=== PATIENT | male | born 1940 | race Caucasian/White ===

== ENCOUNTER 2019-07-23 06:04 | Inpatient (IN) ==
[~2019-07-23 06:04] MED LIST: Dextrose 50 % in Water (Vial) 30 ML, Sodium Bicarbonate 20 MEQ, Lidocaine 1% 5 ML, Insu... TH ONE; Dextrose 50 % in Water (Vial) 30 ML, Sodium Bicarbonate 20 MEQ, Potassium Chloride 15 M... TH ONE; Heparin 15,000 UNIT in 0.9 % Sodium Chloride 500 ML IV ONE; Insulin Human Regular 100 UNIT in 0.9 % Sodium Chloride 100 ML IV PRN; Norepinephrine 4 MG in 0.9 % Sodium Chloride 250 ML IVC PRN
[2019-07-23] MEDS ORDERED: Nitroglycerin 25 MG/250 ML INFUS..BTL IVC ONE (06:23)
[2019-07-23] MEDS ORDERED: NiCARdipine 2.5 MG/10 ML Syringe IVPB ONE (06:23)
[2019-07-23] MEDS ORDERED: *HR* Midazolam HCl 5 MG/5 ML VIAL IVP ONE ×2 (06:33→11:06)
[2019-07-23] MEDS ORDERED: *HR* FentaNYL (PF) 1,000 MCG/20 ML VIAL ONE (06:33)
[2019-07-23] MEDS ORDERED: *HR* Rocuronium Bromide 50 MG/5 ML VIAL ONE (06:34)
[2019-07-23] MEDS ORDERED: *HR* PHENYLEPHRINE 1,000 MCG/10 ML SYRINGE IVP ONE ×2 (06:34→09:23)
[2019-07-23] MEDS ORDERED: Famotidine 20 MG/2 ML VIAL ONE (06:34)
[2019-07-23] MEDS ORDERED: Tranexamic Acid 1,000 MG/10 ML VIAL ONE ×2 (06:34→08:51)
[2019-07-23] MEDS ORDERED: Protamine Sulfate 250 MG/25 ML VIAL IVP ONE (06:34)
[2019-07-23] MEDS ORDERED: Calcium Gluconate 1,000 MG/10 ML VIAL ONE (06:34)
[2019-07-23] MEDS ORDERED: *HR* Etomidate 20 MG/10 ML AMPUL IVP ONE (06:34)
[2019-07-23] MEDS ORDERED: Albuterol 2.5 MG/3 ML NEBULIZER IH PRN (06:40)
[2019-07-23] MEDS ORDERED: Chlorhexidine Rinse 15 ML MOUTHWASH MM ONE (06:42)
[2019-07-23] MEDS ORDERED: CeFAZolin Syr 2,000MG/20 ML 2,000 MG/20 ML SYRINGE IVPB ONE (06:47)
[2019-07-23] MEDS ORDERED: Aspirin 81 MG TAB.CHEW PO SCH (09:00)
[2019-07-23 09:04] LABS: ABG Base Excess 5 mEq/L (-2 to 3); ABG Chloride 102 mEq/L (98-107); ABG Glucose 107 mg/dL (60-95); ABG HCO3 33 mEq/L (21-27); ABG Ionized Calcium 1.21 mmol/L (1.15-1.35); ABG Oxygen Saturation 98 % (95-98); ABG PCO2 64 mmHg (35-45); ABG PH 7.32 pH Units (7.32-7.45); ABG PO2 124 mmHg (85-104); ABG TCO2 35 mEq/L (20-26)
[2019-07-23 09:19] LABS: ABG Base Excess 2 mEq/L (-2 to 3); ABG Chloride 103 mEq/L (98-107); ABG Glucose 152 mg/dL (60-95); ABG HCO3 30 mEq/L (21-27); ABG Ionized Calcium 1.15 mmol/L (1.15-1.35); ABG Oxygen Saturation 97 % (95-98); ABG PCO2 65 mmHg (35-45); ABG PH 7.27 pH Units (7.32-7.45); ABG PO2 109 mmHg (85-104); ABG TCO2 32 mEq/L (20-26)
[2019-07-23] MEDS ORDERED: Lidocaine 2% Syringe 100 MG/5 ML IV ONE (10:21)
[2019-07-23] MEDS ORDERED: *HR* Phenylephrine 10 MG/ML VIAL IVC ONE (10:21)
[2019-07-23] MEDS ORDERED: *HR* Heparin 10,000 UNIT/10 ML VIAL IV ONE (10:21)
[2019-07-23] MEDS ORDERED: Tranexamic Acid 1,000 MG/10 ML VIAL IVPB ONE (10:21)
[2019-07-23] MEDS ORDERED: *HR* Magnesium Sulfate 2 GM/50 ML PIGGYBACK IVPB ONE (10:21)
[2019-07-23] MEDS ORDERED: Albumin Human 25% 25 GM/100 ML IV.SOLN IV ONE (10:21)
[2019-07-23] MEDS ORDERED: Mannitol 25% vial 12.5 GM/50 ML VIAL IVP ONE (10:21)
[2019-07-23 10:29] LABS: ABG Base Excess 5 mEq/L (-2 to 3); ABG Chloride 99 mEq/L (98-107); ABG Glucose 182 mg/dL (60-95); ABG HCO3 29 mEq/L (21-27); ABG Ionized Calcium 1.08 mmol/L (1.15-1.35); ABG PCO2 42 mmHg (35-45); ABG PH 7.45 pH Units (7.32-7.45); ABG PO2 > 630 mmHg (85-104); ABG TCO2 30 mEq/L (20-26)
[2019-07-23 10:37] LABS: ABG Base Excess 4 mEq/L (-2 to 3); ABG Chloride 98 mEq/L (98-107); ABG Glucose 149 mg/dL (60-95); ABG HCO3 27 mEq/L (21-27); ABG Ionized Calcium 1.03 mmol/L (1.15-1.35); ABG Oxygen Saturation 100 % (95-98); ABG PCO2 38 mmHg (35-45); ABG PH 7.47 pH Units (7.32-7.45); ABG PO2 391 mmHg (85-104); ABG TCO2 29 mEq/L (20-26)
[2019-07-23] MEDS ORDERED: *HR* FentaNYL (PF) 250 MCG/5 ML VIAL ONE (11:06)
[2019-07-23] MEDS ORDERED: Albumin Human 5% 50.0 GM/1,000 ML VIAL ONE (11:11)
[2019-07-23 11:31] LABS: ABG Base Excess 1 mEq/L (-2 to 3); ABG Chloride 100 mEq/L (98-107); ABG Glucose 98 mg/dL (60-95); ABG HCO3 27 mEq/L (21-27); ABG Ionized Calcium 1.23 mmol/L (1.15-1.35); ABG Oxygen Saturation 97 % (95-98); ABG PCO2 48 mmHg (35-45); ABG PH 7.35 pH Units (7.32-7.45); ABG PO2 93 mmHg (85-104); ABG TCO2 28 mEq/L (20-26)
[2019-07-23] MEDS ORDERED: Acetaminophen 325 MG TABLET PO PRN (11:40)
[2019-07-23] MEDS ORDERED: Insulin Regular, Human 100 UNIT/ML IV PRN (11:40)
[2019-07-23] MEDS ORDERED: Acetaminophen 650 MG RECTAL SUPP RC PRN (11:40)
[2019-07-23] MEDS ORDERED: Amiodarone Premix 150 MG/100 ML BAG IVPB ONE (11:40)
[2019-07-23] MEDS ORDERED: Potassium Chloride 40 MEQ/200 ML BAG IVPB PRN (11:40)
[2019-07-23] MEDS: Nitroglycerin 25 MG/250 ML INFUS..BTL IVC SCH ×2 (11:40→22:06)
[2019-07-23] MEDS ORDERED: *HR* Dextrose 50 % in Water (Syg) 50 ML SYRINGE IVP PRN (11:40)
[2019-07-23] MEDS ORDERED: Ondansetron 4 MG/2 ML VIAL IVP PRN (11:40)
[2019-07-23] MEDS ORDERED: Amiodarone Premix 360 MG/200 ML BAG IVC ONE (11:40)
[2019-07-23] MEDS ORDERED: Calcium Gluconate 1gm/50mL 1 GM/50 ML BAG IVPB PRN (11:40)
[2019-07-23] MEDS ORDERED: 0.9 % Sodium Chloride w KCl 20 MEQ/1,000 ML MLS IVC SCH (11:45)
[2019-07-23 11:59] LABS: ABG Base Excess 2 mEq/L (-2 to 3); ABG HCO3 28 mEq/L (21-27); ABG Oxygen Saturation 100 % (95-98); ABG PCO2 51 mmHg (35-45); ABG PH 7.35 pH Units (7.32-7.45); ABG PO2 371 mmHg (85-104); ABG TCO2 30 mEq/L (20-26); Blood Gas Modality ASSIST CONTROL; Blood Gas VT 700 cc
[2019-07-23] MEDS ORDERED: niCARdipine 20 MG/200 ML MLS IVC ONE (12:07)
[2019-07-23 12:11] LABS: Basophils % 0.1 %; Eosinophils # 0.1 K/mcL (0.0-0.6); Eosinophils % 1.1 %; Hematocrit 27.9 % (37.5-50.1); Immature Granulocytes % 1.1 % (0-4); Lymphocytes # 0.6 K/mcL (0.6-4.6); Lymphocytes % 7.8 %; Mean Corpuscular HGB Conc 33.3 g/dL (31.6-35.5); Mean Corpuscular Hemoglobin 32.3 pg (28.0-33.3); Mean Corpuscular Volume 96.9 fL (83.0-100.0); Mean Platelet Volume 8.5 fL (9.4-12.4); Monocytes # 0.5 K/mcL (0.0-1.3); Monocytes % 6.8 %; Neutrophils # 6.2 K/mcL (1.6-8.9); Platelet Count 121 K/mcL (140-400); Red Blood Count 2.88 M/mcL (4.19-5.50); Red Cell Distribution Width 13.8 % (11.5-14.5); Segmented Neutrophils % 83.1 %; White Blood Count 7.4 K/mcL (4.3-11.1)
[2019-07-23 12:12] LABS: Hemoglobin 9.3 g/dL (12.9-16.9)
[2019-07-23] MEDS: niCARdipine 20 MG/200 ML MLS IVC SCH ×3 (12:15→23:57)
[2019-07-23] MEDS: *HR* FentaNYL (PF) 100 MCG/2 ML VIAL IVP PRN ×2 (12:18→18:47)
[2019-07-23 12:20] LABS: INR 1.4; Prothrombin Time 15.7 Seconds (9.4-12.1)
[2019-07-23 12:22] LABS: BUN/Creatinine Ratio 15 (6-26); Blood Urea Nitrogen 19 mg/dL (8-23); Calcium 8.4 mg/dL (8.6-10.3); Carbon Dioxide 27 mEq/L (23-29); Chloride 103 mEq/L (98-107); Glucose 88 mg/dL (70-105); Magnesium 2.2 mg/dL (1.6-2.6); Osmolality,Calculated 286 (280-300); Potassium 3.5 mEq/L (3.5-5.1); Sodium 137 mEq/L (136-145); eGFR For African Americans > 60 (> 60); eGFR For Non-African Americans 57 (> 60)
[2019-07-23] MEDS: Metoclopramide 10 MG/2 ML VIAL IVP SCH ×3 (12:26→23:57)
[2019-07-23] MEDS: Pantoprazole 40 MG VIAL IVP SCH (13:29)
[2019-07-23 15:05] LABS: ABG Base Excess 2 mEq/L (-2 to 3); ABG HCO3 29 mEq/L (21-27); ABG Oxygen Saturation 98 % (95-98); ABG PCO2 57 mmHg (35-45); ABG PH 7.31 pH Units (7.32-7.45); ABG PO2 112 mmHg (85-104); ABG TCO2 31 mEq/L (20-26); Blood Gas Modality ASSIST CONTROL; Blood Gas VT 700 cc
[2019-07-23] MEDS: Norepinephrine 4 MG in 0.9 % Sodium Chloride 250 ML IVC SCH (19:37)
[2019-07-23] MEDS: Amiodarone Premix 360 MG/200 ML BAG IVC SCH (19:37)
[2019-07-23] MEDS: Chlorhexidine Rinse 15 ML MOUTHWASH MM SCH (19:40)
[2019-07-23] MEDS: *HR* OxyCODONE/APAP 5/325 TABLET PO PRN (22:04)
[2019-07-24] MEDS: niCARdipine 20 MG/200 ML MLS IVC SCH ×6 (01:55→19:57)
[2019-07-24] MEDS: Insulin Human Regular 100 UNIT in 0.9 % Sodium Chloride 100 ML IVC SCH ×2 (01:55→19:42)
[2019-07-24 03:56] LABS: INR 1.1; Prothrombin Time 12.7 Seconds (9.4-12.1)
[2019-07-24 03:59] LABS: Activated Partial Thrombo Time 30.4 Seconds (26.0-36.0)
[2019-07-24] MEDS: *HR* OxyCODONE/APAP 5/325 TABLET PO PRN ×2 (03:59→21:21)
[2019-07-24 04:05] LABS: Basophils % 0.2 %; Hematocrit 32.7 % (37.5-50.1); Hemoglobin 10.7 g/dL (12.9-16.9); Immature Granulocytes % 0.4 % (0-4); Lymphocytes # 0.8 K/mcL (0.6-4.6); Lymphocytes % 9.1 %; Mean Corpuscular HGB Conc 32.7 g/dL (31.6-35.5); Mean Corpuscular Hemoglobin 32.5 pg (28.0-33.3); Mean Corpuscular Volume 99.4 fL (83.0-100.0); Mean Platelet Volume 9.6 fL (9.4-12.4); Monocytes # 0.8 K/mcL (0.0-1.3); Neutrophils # 6.9 K/mcL (1.6-8.9); Platelet Count 172 K/mcL (140-400); Red Blood Count 3.29 M/mcL (4.19-5.50); Red Cell Distribution Width 14.2 % (11.5-14.5); Segmented Neutrophils % 81.3 %; White Blood Count 8.5 K/mcL (4.3-11.1)
[2019-07-24 04:16] LABS: Calcium 8.6 mg/dL (8.6-10.3); Magnesium 2.5 mg/dL (1.6-2.6); Potassium 4.5 mEq/L (3.5-5.1)
[2019-07-24] MEDS ORDERED: D5% in Water 1,000 ML IVC PRN (05:13)
[2019-07-24] MEDS ORDERED: *HR* Dextrose 50 % in Water (Syg) 50 ML SYRINGE IVP PRN (05:13)
[2019-07-24] MEDS ORDERED: Dextrose Gel 15 GM/37.5 ML TUBE PO PRN ×2 (05:13)
[2019-07-24] MEDS: Nitroglycerin 25 MG/250 ML INFUS..BTL IVC SCH ×3 (05:14→19:57)
[2019-07-24] MEDS: Metoclopramide 10 MG/2 ML VIAL IVP SCH ×3 (05:17→19:45)
[2019-07-24] MEDS: *HR* Heparin 5,000 UNIT/ML VIAL SQ SCH ×2 (06:30→19:43)
[2019-07-24] MEDS: Insulin LISPRO 300 UNITS/3 ML VIAL SQ SCH ×4 (06:46→19:57)
[2019-07-24] MEDS: Aspirin Enteric Coated 81 MG Tablet PO SCH (19:40)
[2019-07-24] MEDS: Furosemide 20 MG/2 ML VIAL IVP SCH ×2 (19:41→19:56)
[2019-07-24] MEDS: Chlorhexidine Rinse 15 ML MOUTHWASH MM SCH ×2 (19:41→19:56)
[2019-07-24] MEDS: Pantoprazole 40 MG VIAL IVP SCH (19:41)
[2019-07-24] MEDS: Norepinephrine 4 MG in 0.9 % Sodium Chloride 250 ML IVC SCH (19:42)
[2019-07-24] MEDS: Amiodarone Premix 360 MG/200 ML BAG IVC SCH (19:42)
[2019-07-25] MEDS: Metoclopramide 10 MG/2 ML VIAL IVP SCH ×4 (00:28→16:25)
[2019-07-25] MEDS: niCARdipine 20 MG/200 ML MLS IVC SCH ×6 (00:29→20:29)
[2019-07-25 04:32] LABS: Basophils % 0.2 %; Eosinophils % 0.3 %; Hematocrit 34.4 % (37.5-50.1); Hemoglobin 10.5 g/dL (12.9-16.9); Immature Granulocytes % 0.6 % (0-4); Lymphocytes # 0.9 K/mcL (0.6-4.6); Lymphocytes % 8.9 %; Mean Corpuscular HGB Conc 30.5 g/dL (31.6-35.5); Mean Corpuscular Volume 104.9 fL (83.0-100.0); Mean Platelet Volume 9.7 fL (9.4-12.4); Monocytes # 0.9 K/mcL (0.0-1.3); Monocytes % 9.6 %; Neutrophils # 7.9 K/mcL (1.6-8.9); Platelet Count 165 K/mcL (140-400); Red Blood Count 3.28 M/mcL (4.19-5.50); Red Cell Distribution Width 14.4 % (11.5-14.5); Segmented Neutrophils % 80.4 %; White Blood Count 9.8 K/mcL (4.3-11.1)
[2019-07-25 04:44] LABS: Calcium 8.7 mg/dL (8.6-10.3); Potassium 4.5 mEq/L (3.5-5.1)
[2019-07-25] MEDS: *HR* Heparin 5,000 UNIT/ML VIAL SQ SCH ×2 (05:18→16:26)
[2019-07-25] MEDS: Nitroglycerin 25 MG/250 ML INFUS..BTL IVC SCH ×3 (05:20→20:29)
[2019-07-25] MEDS: Insulin LISPRO 300 UNITS/3 ML VIAL SQ SCH ×4 (07:26→20:29)
[2019-07-25] MEDS: *HR* OxyCODONE/APAP 5/325 TABLET PO PRN (07:34)
[2019-07-25] MEDS: Aspirin Enteric Coated 81 MG Tablet PO SCH (07:35)
[2019-07-25] MEDS: Furosemide 20 MG/2 ML VIAL IVP SCH ×2 (07:39→20:30)
[2019-07-25] MEDS: Pantoprazole 40 MG VIAL IVP SCH (07:39)
[2019-07-25] MEDS: Chlorhexidine Rinse 15 ML MOUTHWASH MM SCH ×2 (07:39→20:28)
[2019-07-25] MEDS: Norepinephrine 4 MG in 0.9 % Sodium Chloride 250 ML IVC SCH (09:51)
[2019-07-25] MEDS: Amiodarone Premix 360 MG/200 ML BAG IVC SCH (09:51)
[2019-07-25] MEDS: Acetylcysteine 10% 2 ML INHSOL IH SCH ×4 (11:42→23:42)
[2019-07-25] MEDS: Ipratropium/Albuterol Neb 3 ML IH SCH ×4 (11:42→23:42)
[2019-07-26] MEDS: Metoclopramide 10 MG/2 ML VIAL IVP SCH ×3 (00:12→11:36)
[2019-07-26] MEDS: Ipratropium/Albuterol Neb 3 ML IH SCH ×5 (04:01→20:15)
[2019-07-26] MEDS: Acetylcysteine 10% 2 ML INHSOL IH SCH ×5 (04:01→20:16)
[2019-07-26 04:51] LABS: Basophils % 0.2 %; Eosinophils % 0.2 %; Hematocrit 31.1 % (37.5-50.1); Hemoglobin 9.8 g/dL (12.9-16.9); Immature Granulocytes % 0.5 % (0-4); Lymphocytes # 0.6 K/mcL (0.6-4.6); Lymphocytes % 10.3 %; Mean Corpuscular HGB Conc 31.5 g/dL (31.6-35.5); Mean Corpuscular Hemoglobin 32.5 pg (28.0-33.3); Mean Platelet Volume 9.5 fL (9.4-12.4); Monocytes # 0.6 K/mcL (0.0-1.3); Monocytes % 9.1 %; Neutrophils # 4.8 K/mcL (1.6-8.9); Platelet Count 166 K/mcL (140-400); Red Blood Count 3.02 M/mcL (4.19-5.50); Red Cell Distribution Width 14.2 % (11.5-14.5); Segmented Neutrophils % 79.7 %
[2019-07-26 05:10] LABS: Calcium 8.5 mg/dL (8.6-10.3); Potassium 4.1 mEq/L (3.5-5.1)
[2019-07-26 05:12] LABS: % Iron Saturation 8 % (20-55); Iron 16 mcg/dL (65-175); Transferrin 144 mg/dL (203-362)
[2019-07-26 05:30] LABS: Ferritin 124 ng/mL (20-250)
[2019-07-26 05:35] LABS: Folate 12.1 ng/mL (3.0-16.0)
[2019-07-26] MEDS: niCARdipine 20 MG/200 ML MLS IVC SCH ×6 (06:09→23:07)
[2019-07-26] MEDS: *HR* Heparin 5,000 UNIT/ML VIAL SQ SCH ×2 (06:11→17:42)
[2019-07-26] MEDS: Pantoprazole 40 MG VIAL IVP SCH (08:48)
[2019-07-26] MEDS: Nitroglycerin 25 MG/250 ML INFUS..BTL IVC SCH ×2 (08:49→16:18)
[2019-07-26] MEDS: Insulin LISPRO 300 UNITS/3 ML VIAL SQ SCH ×4 (08:49→20:56)
[2019-07-26] MEDS: Chlorhexidine Rinse 15 ML MOUTHWASH MM SCH ×2 (08:49→20:56)
[2019-07-26] MEDS: Aspirin Enteric Coated 81 MG Tablet PO SCH (08:49)
[2019-07-26] MEDS: *HR* OxyCODONE/APAP 5/325 TABLET PO PRN ×2 (09:01→17:42)
[2019-07-26] MEDS ORDERED: Cyanocobalamin (B-12) 1,000 MCG/ML VIAL IM ONE (10:30)
[2019-07-26] MEDS ORDERED: 0.9 % Sodium Chloride 1,000 ML IVC SCH (10:45)
[2019-07-26] MEDS: Amiodarone Premix 360 MG/200 ML BAG IVC SCH (11:22)
[2019-07-26] MEDS: Norepinephrine 4 MG in 0.9 % Sodium Chloride 250 ML IVC SCH (11:22)
[2019-07-26] MEDS ORDERED: 0.9 % Sodium Chloride 500 ML IVC SCH (15:45)
[2019-07-26 15:57] LABS: Bilirubin,Urine Small (Negative); Blood,Urine Large (Negative); Clarity,Urine Cloudy (Clear); Color,Urine Yellow (Yellow); Glucose,Urine (UA) Normal (Normal); Ketones,Urine Negative (Negative); Leukocyte Esterase,Urine Trace (Negative); Nitrite,Urine Negative (Negative); Protein,Urine 100 mg/dL (Neg-Trace); Specific Gravity,Urine 1.022 (1.010-1.025); Urobilinogen,Urine Normal (Normal)
[2019-07-26 15:59] LABS: Bacteria,Urine None Seen per hpf (None-Few); RBC,Urine 15-30 per hpf (0-3); Squamous Epithelial Cell,Urine Many per lpf (None-Few)
[2019-07-26 16:07] LABS: Creatinine,Urine 175 mg/dL; Sodium, Urine < 10.0 mEq/L
[2019-07-27] MEDS: Ipratropium/Albuterol Neb 3 ML IH SCH ×7 (00:07→23:50)
[2019-07-27] MEDS: Acetylcysteine 10% 2 ML INHSOL IH SCH ×7 (00:08→23:50)
[2019-07-27] MEDS: niCARdipine 20 MG/200 ML MLS IVC SCH ×4 (03:00→19:01)
[2019-07-27] MEDS: Nitroglycerin 25 MG/250 ML INFUS..BTL IVC SCH ×3 (03:00→19:01)
[2019-07-27 03:45] LABS: Basophils % 0.2 %; Eosinophils % 0.8 %; Hematocrit 28.1 % (37.5-50.1); Hemoglobin 9.4 g/dL (12.9-16.9); Immature Granulocytes % 0.6 % (0-4); Lymphocytes # 0.5 K/mcL (0.6-4.6); Lymphocytes % 9.6 %; Mean Corpuscular HGB Conc 33.5 g/dL (31.6-35.5); Mean Corpuscular Hemoglobin 32.8 pg (28.0-33.3); Mean Corpuscular Volume 97.9 fL (83.0-100.0); Mean Platelet Volume 9.6 fL (9.4-12.4); Monocytes # 0.5 K/mcL (0.0-1.3); Monocytes % 9.8 %; Neutrophils # 3.8 K/mcL (1.6-8.9); Platelet Count 192 K/mcL (140-400); Red Blood Count 2.87 M/mcL (4.19-5.50); Red Cell Distribution Width 14.1 % (11.5-14.5); White Blood Count 4.8 K/mcL (4.3-11.1)
[2019-07-27 04:13] LABS: Calcium 8.4 mg/dL (8.6-10.3); Potassium 3.8 mEq/L (3.5-5.1)
[2019-07-27] MEDS: *HR* Heparin 5,000 UNIT/ML VIAL SQ SCH ×2 (05:59→16:59)
[2019-07-27] MEDS: Aspirin Enteric Coated 81 MG Tablet PO SCH (08:23)
[2019-07-27] MEDS: Chlorhexidine Rinse 15 ML MOUTHWASH MM SCH ×2 (08:23→20:33)
[2019-07-27] MEDS: Pantoprazole 40 MG VIAL IVP SCH (08:23)
[2019-07-27] MEDS: Cyanocobalamin (B-12) 1,000 MCG TABLET PO SCH (08:23)
[2019-07-27] MEDS: Insulin LISPRO 300 UNITS/3 ML VIAL SQ SCH ×4 (08:24→20:36)
[2019-07-27] MEDS: *HR* OxyCODONE/APAP 5/325 TABLET PO PRN ×2 (13:12→19:16)
[2019-07-27] MEDS: Amiodarone Premix 360 MG/200 ML BAG IVC SCH (15:43)
[2019-07-27] MEDS: Norepinephrine 4 MG in 0.9 % Sodium Chloride 250 ML IVC SCH (15:43)
[2019-07-28 03:20] LABS: Basophils % 0.4 %; Eosinophils # 0.2 K/mcL (0.0-0.6); Eosinophils % 2.9 %; Hematocrit 28.6 % (37.5-50.1); Hemoglobin 9.4 g/dL (12.9-16.9); Immature Granulocytes % 0.4 % (0-4); Lymphocytes # 0.8 K/mcL (0.6-4.6); Lymphocytes % 16.3 %; Mean Corpuscular HGB Conc 32.9 g/dL (31.6-35.5); Mean Corpuscular Hemoglobin 32.4 pg (28.0-33.3); Mean Corpuscular Volume 98.6 fL (83.0-100.0); Mean Platelet Volume 9.1 fL (9.4-12.4); Monocytes # 0.6 K/mcL (0.0-1.3); Monocytes % 11.1 %; Neutrophils # 3.5 K/mcL (1.6-8.9); Platelet Count 201 K/mcL (140-400); Red Cell Distribution Width 14.3 % (11.5-14.5); Segmented Neutrophils % 68.9 %; White Blood Count 5.1 K/mcL (4.3-11.1)
[2019-07-28] MEDS: niCARdipine 20 MG/200 ML MLS IVC SCH (03:20)
[2019-07-28] MEDS: Nitroglycerin 25 MG/250 ML INFUS..BTL IVC SCH (03:21)
[2019-07-28] MEDS: Acetylcysteine 10% 2 ML INHSOL IH SCH ×2 (03:32→07:42)
[2019-07-28] MEDS: Ipratropium/Albuterol Neb 3 ML IH SCH ×8 (03:32→23:55)
[2019-07-28 03:38] LABS: Calcium 8.5 mg/dL (8.6-10.3); Potassium 3.9 mEq/L (3.5-5.1)
[2019-07-28] MEDS: *HR* Heparin 5,000 UNIT/ML VIAL SQ SCH ×2 (06:07→17:26)
[2019-07-28] MEDS: Pantoprazole 40 MG VIAL IVP SCH ×2 (07:32→10:06)
[2019-07-28] MEDS: Chlorhexidine Rinse 15 ML MOUTHWASH MM SCH ×3 (07:32→20:16)
[2019-07-28] MEDS: Cyanocobalamin (B-12) 1,000 MCG TABLET PO SCH ×2 (07:33→10:07)
[2019-07-28] MEDS: Insulin LISPRO 300 UNITS/3 ML VIAL SQ SCH ×4 (07:33→20:17)
[2019-07-28] MEDS: Aspirin Enteric Coated 81 MG Tablet PO SCH ×2 (07:33→10:05)
[2019-07-28] MEDS ORDERED: Dextrose Gel 15 GM/37.5 ML TUBE PO PRN ×2 (07:39)
[2019-07-28] MEDS ORDERED: Acetaminophen 325 MG TABLET PO PRN (07:39)
[2019-07-28] MEDS ORDERED: Insulin Regular, Human 100 UNIT/ML IV PRN (07:39)
[2019-07-28] MEDS ORDERED: Ondansetron 4 MG/2 ML VIAL IVP PRN (07:39)
[2019-07-28] MEDS ORDERED: D5% in Water 1,000 ML IVC PRN (07:39)
[2019-07-28] MEDS ORDERED: *HR* Dextrose 50 % in Water (Syg) 50 ML SYRINGE IVP PRN (07:39)
[2019-07-28] MEDS ORDERED: Albuterol 2.5 MG/3 ML NEBULIZER IH PRN (07:39)
[2019-07-28] MEDS ORDERED: Tiotropium 18 MCG inhalation IH SCH (09:00)
[2019-07-28] MEDS: BuPROPion SR (12 HR) 150 MG TABLET PO SCH (10:11)
[2019-07-28] MEDS: *HR* LORazepam 1 MG TABLET PO SCH ×3 (10:11→20:15)
[2019-07-28] MEDS: Budesonide/Formoterol 160/4.5 1 PUFF INH IH SCH ×2 (11:45→20:16)
[2019-07-28] MEDS: Loratadine 10 MG TABLET PO SCH (20:17)
[2019-07-29 02:05] LABS: Basophils % 0.2 %; Eosinophils # 0.1 K/mcL (0.0-0.6); Eosinophils % 2.9 %; Hematocrit 28.1 % (37.5-50.1); Hemoglobin 8.7 g/dL (12.9-16.9); Immature Granulocytes % 0.6 % (0-4); Lymphocytes # 0.7 K/mcL (0.6-4.6); Lymphocytes % 14.7 %; Mean Corpuscular Volume 103.3 fL (83.0-100.0); Mean Platelet Volume 9.6 fL (9.4-12.4); Monocytes # 0.6 K/mcL (0.0-1.3); Monocytes % 11.4 %; Neutrophils # 3.5 K/mcL (1.6-8.9); Platelet Count 190 K/mcL (140-400); Red Blood Count 2.72 M/mcL (4.19-5.50); Red Cell Distribution Width 14.2 % (11.5-14.5); Segmented Neutrophils % 70.2 %; White Blood Count 4.9 K/mcL (4.3-11.1)
[2019-07-29 02:20] LABS: Calcium 8.3 mg/dL (8.6-10.3); Potassium 3.9 mEq/L (3.5-5.1)
[2019-07-29] MEDS: Ipratropium/Albuterol Neb 3 ML IH SCH ×5 (03:54→19:28)
[2019-07-29] MEDS: *HR* Heparin 5,000 UNIT/ML VIAL SQ SCH ×2 (04:51→17:14)
[2019-07-29] MEDS: Budesonide/Formoterol 160/4.5 1 PUFF INH IH SCH ×2 (08:02→19:28)
[2019-07-29] MEDS: Pantoprazole 40 MG VIAL IVP SCH (08:17)
[2019-07-29] MEDS: BuPROPion SR (12 HR) 150 MG TABLET PO SCH (08:17)
[2019-07-29] MEDS: Insulin LISPRO 300 UNITS/3 ML VIAL SQ SCH ×4 (08:17→21:23)
[2019-07-29] MEDS: Chlorhexidine Rinse 15 ML MOUTHWASH MM SCH ×2 (08:17→21:22)
[2019-07-29] MEDS: Aspirin Enteric Coated 81 MG Tablet PO SCH (08:18)
[2019-07-29] MEDS: *HR* LORazepam 1 MG TABLET PO SCH ×3 (08:18→21:22)
[2019-07-29] MEDS: Cyanocobalamin (B-12) 1,000 MCG TABLET PO SCH (08:18)
[2019-07-29] MEDS: Loratadine 10 MG TABLET PO SCH (21:22)
[2019-07-30 01:45] LABS: Basophils % 0.4 %; Eosinophils # 0.1 K/mcL (0.0-0.6); Eosinophils % 2.3 %; Hematocrit 28.7 % (37.5-50.1); Hemoglobin 9.1 g/dL (12.9-16.9); Immature Granulocytes % 1.1 % (0-4); Lymphocytes # 0.8 K/mcL (0.6-4.6); Lymphocytes % 15.3 %; Mean Corpuscular HGB Conc 31.7 g/dL (31.6-35.5); Mean Corpuscular Hemoglobin 31.9 pg (28.0-33.3); Mean Corpuscular Volume 100.7 fL (83.0-100.0); Mean Platelet Volume 9.5 fL (9.4-12.4); Monocytes # 0.7 K/mcL (0.0-1.3); Monocytes % 12.3 %; Neutrophils # 3.6 K/mcL (1.6-8.9); Platelet Count 224 K/mcL (140-400); Red Blood Count 2.85 M/mcL (4.19-5.50); Red Cell Distribution Width 14.1 % (11.5-14.5); Segmented Neutrophils % 68.6 %; White Blood Count 5.3 K/mcL (4.3-11.1)
[2019-07-30] MEDS: Ipratropium/Albuterol Neb 3 ML IH SCH ×6 (04:04→19:45)
[2019-07-30] MEDS: *HR* Heparin 5,000 UNIT/ML VIAL SQ SCH ×2 (05:30→17:10)
[2019-07-30] MEDS: Budesonide/Formoterol 160/4.5 1 PUFF INH IH SCH ×2 (07:29→19:45)
[2019-07-30] MEDS: Insulin LISPRO 300 UNITS/3 ML VIAL SQ SCH ×4 (08:23→22:39)
[2019-07-30] MEDS: Aspirin Enteric Coated 81 MG Tablet PO SCH (08:25)
[2019-07-30] MEDS: Pantoprazole 40 MG VIAL IVP SCH (08:25)
[2019-07-30] MEDS: Chlorhexidine Rinse 15 ML MOUTHWASH MM SCH ×2 (08:25→22:38)
[2019-07-30] MEDS: *HR* LORazepam 1 MG TABLET PO SCH ×3 (08:25→22:38)
[2019-07-30] MEDS: BuPROPion SR (12 HR) 150 MG TABLET PO SCH (08:25)
[2019-07-30] MEDS: Cyanocobalamin (B-12) 1,000 MCG TABLET PO SCH (08:26)
[2019-07-30] MEDS: Loratadine 10 MG TABLET PO SCH (22:38)
[2019-07-30] MEDS: *HR* OxyCODONE/APAP 5/325 TABLET PO PRN (23:01)
[2019-07-31] MEDS: Ipratropium/Albuterol Neb 3 ML IH SCH ×7 (01:07→23:14)
[2019-07-31 05:07] LABS: BUN/Creatinine Ratio 26 (6-26); Blood Urea Nitrogen 33 mg/dL (8-23); Calcium 8.5 mg/dL (8.6-10.3); Carbon Dioxide 30 mEq/L (23-29); Chloride 101 mEq/L (98-107); Glucose 94 mg/dL (70-105); Osmolality,Calculated 289 (280-300); Potassium 3.8 mEq/L (3.5-5.1); Sodium 136 mEq/L (136-145); eGFR For African Americans > 60 (> 60); eGFR For Non-African Americans 54 (> 60)
[2019-07-31] MEDS: *HR* Heparin 5,000 UNIT/ML VIAL SQ SCH ×2 (05:39→17:12)
[2019-07-31] MEDS: Budesonide/Formoterol 160/4.5 1 PUFF INH IH SCH ×2 (07:16→19:30)
[2019-07-31] MEDS: Insulin LISPRO 300 UNITS/3 ML VIAL SQ SCH ×4 (08:22→19:58)
[2019-07-31] MEDS: Pantoprazole 40 MG VIAL IVP SCH (08:22)
[2019-07-31] MEDS: Chlorhexidine Rinse 15 ML MOUTHWASH MM SCH ×2 (08:22→20:02)
[2019-07-31] MEDS: Aspirin Enteric Coated 81 MG Tablet PO SCH (08:22)
[2019-07-31] MEDS: *HR* LORazepam 1 MG TABLET PO SCH ×3 (08:22→20:01)
[2019-07-31] MEDS: *HR* OxyCODONE/APAP 5/325 TABLET PO PRN (08:23)
[2019-07-31] MEDS: BuPROPion SR (12 HR) 150 MG TABLET PO SCH (08:23)
[2019-07-31] MEDS: Cyanocobalamin (B-12) 1,000 MCG TABLET PO SCH (08:24)
[2019-07-31] MEDS: Famotidine 20 MG TABLET PO SCH (20:01)
[2019-07-31] MEDS: Loratadine 10 MG TABLET PO SCH (20:01)
[2019-08-01] MEDS: Ipratropium/Albuterol Neb 3 ML IH SCH ×6 (03:32→23:21)
[2019-08-01] MEDS: *HR* Heparin 5,000 UNIT/ML VIAL SQ SCH ×2 (06:16→17:10)
[2019-08-01] MEDS: Budesonide/Formoterol 160/4.5 1 PUFF INH IH SCH ×2 (07:28→19:50)
[2019-08-01] MEDS: Insulin LISPRO 300 UNITS/3 ML VIAL SQ SCH ×4 (07:46→20:18)
[2019-08-01] MEDS: Chlorhexidine Rinse 15 ML MOUTHWASH MM SCH ×2 (08:03→20:17)
[2019-08-01] MEDS: Famotidine 20 MG TABLET PO SCH ×2 (08:03→20:17)
[2019-08-01] MEDS: Cyanocobalamin (B-12) 1,000 MCG TABLET PO SCH (08:03)
[2019-08-01] MEDS: BuPROPion SR (12 HR) 150 MG TABLET PO SCH (08:04)
[2019-08-01] MEDS: *HR* LORazepam 1 MG TABLET PO SCH ×3 (08:04→20:17)
[2019-08-01] MEDS: Aspirin Enteric Coated 81 MG Tablet PO SCH (08:04)
[2019-08-01] MEDS: *HR* OxyCODONE/APAP 5/325 TABLET PO PRN (14:53)
[2019-08-01] MEDS: Loratadine 10 MG TABLET PO SCH (20:17)
[2019-08-02] MEDS: Ipratropium/Albuterol Neb 3 ML IH SCH ×6 (03:18→23:04)
[2019-08-02] MEDS: *HR* Heparin 5,000 UNIT/ML VIAL SQ SCH ×2 (05:52→16:17)
[2019-08-02] MEDS: Budesonide/Formoterol 160/4.5 1 PUFF INH IH SCH ×2 (07:16→19:44)
[2019-08-02] MEDS: Aspirin Enteric Coated 81 MG Tablet PO SCH (07:57)
[2019-08-02] MEDS: Insulin LISPRO 300 UNITS/3 ML VIAL SQ SCH ×4 (07:57→21:15)
[2019-08-02] MEDS: *HR* LORazepam 1 MG TABLET PO SCH ×3 (07:57→21:14)
[2019-08-02] MEDS: BuPROPion SR (12 HR) 150 MG TABLET PO SCH (07:58)
[2019-08-02] MEDS: Famotidine 20 MG TABLET PO SCH ×2 (07:58→21:14)
[2019-08-02] MEDS: Cyanocobalamin (B-12) 1,000 MCG TABLET PO SCH (07:58)
[2019-08-02] MEDS: Chlorhexidine Rinse 15 ML MOUTHWASH MM SCH ×2 (07:58→21:18)
[2019-08-02] MEDS: *HR* OxyCODONE/APAP 5/325 TABLET PO PRN ×2 (11:49→21:14)
[2019-08-02] MEDS: Loratadine 10 MG TABLET PO SCH (21:14)
[2019-08-03] MEDS: *HR* OxyCODONE/APAP 5/325 TABLET PO PRN ×3 (03:00→15:33)
[2019-08-03] MEDS: Ipratropium/Albuterol Neb 3 ML IH SCH ×3 (03:17→11:11)
[2019-08-03] MEDS: *HR* Heparin 5,000 UNIT/ML VIAL SQ SCH (05:39)
[2019-08-03] MEDS: Budesonide/Formoterol 160/4.5 1 PUFF INH IH SCH (07:47)
[2019-08-03] MEDS: Insulin LISPRO 300 UNITS/3 ML VIAL SQ SCH ×2 (08:13→11:32)
[2019-08-03] MEDS: Chlorhexidine Rinse 15 ML MOUTHWASH MM SCH (08:14)
[2019-08-03] MEDS: BuPROPion SR (12 HR) 150 MG TABLET PO SCH (08:14)
[2019-08-03] MEDS: *HR* LORazepam 1 MG TABLET PO SCH ×2 (08:15→15:33)
[2019-08-03] MEDS: Aspirin Enteric Coated 81 MG Tablet PO SCH (08:15)
[2019-08-03] MEDS: Cyanocobalamin (B-12) 1,000 MCG TABLET PO SCH (08:15)
[2019-08-03] MEDS: Famotidine 20 MG TABLET PO SCH (08:15)
[2019-08-03 11:38] VITALS: BP 135/69
== END 2019-08-03 15:53 | DRG 235 ==
LOC: SAMDAY 06:04 → ICNU 10:28 → 2NNU 07-28 09:10
PROVIDERS: ADMIT Thoracic Surgery (Cardiothoracic Vascular Surgery); ATTEND Thoracic Surgery (Cardiothoracic Vascular Surgery)

== ENCOUNTER 2019-08-18 12:54 | Inpatient (IN) ==
[2019-08-18] MEDS ORDERED: Ipratropium/Albuterol Neb 3 ML IH ONE (13:15)
[2019-08-18 14:18] LABS: Hematocrit 25.8 % (37.5-50.1); Hemoglobin 7.7 g/dL (12.9-16.9); Immature Granulocytes % 0.3 % (0-4); Lymphocytes # 0.3 K/mcL (0.6-4.6); Lymphocytes % 4.4 %; Mean Corpuscular HGB Conc 29.8 g/dL (31.6-35.5); Mean Corpuscular Hemoglobin 31.6 pg (28.0-33.3); Mean Corpuscular Volume 105.7 fL (83.0-100.0); Monocytes # 0.1 K/mcL (0.0-1.3); Monocytes % 1.6 %; Neutrophils # 5.4 K/mcL (1.6-8.9); Platelet Count 225 K/mcL (140-400); Red Blood Count 2.44 M/mcL (4.19-5.50); Segmented Neutrophils % 93.7 %; White Blood Count 5.7 K/mcL (4.3-11.1)
[2019-08-18 14:35] LABS: BUN/Creatinine Ratio 15 (6-26); Blood Urea Nitrogen 42 mg/dL (8-23); Calcium 9.3 mg/dL (8.6-10.3); Carbon Dioxide 36 mEq/L (23-29); Chloride 97 mEq/L (98-107); Glucose 176 mg/dL (70-105); Osmolality,Calculated 303 (280-300); Sodium 139 mEq/L (136-145); eGFR For African Americans 27 (> 60); eGFR For Non-African Americans 22 (> 60)
[2019-08-18 14:36] LABS: Troponin I < 0.03 ng/mL (< 0.04)
[2019-08-18] MEDS ORDERED: Furosemide 20 MG/2 ML VIAL IVP ONE (17:04)
[2019-08-18] MEDS ORDERED: Ondansetron 4 MG/2 ML VIAL IVP PRN (17:16)
[2019-08-18] MEDS ORDERED: Naloxone 0.4 MG/ML INJ IVP PRN (17:16)
[2019-08-18 19:00] LABS: ABG Base Excess 12 mEq/L (-2 to 3); ABG HCO3 38 mEq/L (21-27); ABG Oxygen Saturation 97 % (95-98); ABG PCO2 56 mmHg (35-45); ABG PH 7.44 pH Units (7.32-7.45); ABG PO2 87 mmHg (85-104); ABG TCO2 39 mEq/L (20-26)
[2019-08-18] MEDS: Budesonide/Formoterol 160/4.5 1 PUFF INH IH SCH (20:38)
[2019-08-18] MEDS: Ipratropium/Albuterol Neb 3 ML IH SCH (20:38)
[2019-08-18] MEDS: Albumin 25% 25gram/100mL 25 GM/100 ML IV.SOLN IVPB SCH (21:44)
[2019-08-18] MEDS: Furosemide 40 MG/4 ML VIAL IVP SCH (21:44)
[2019-08-18] MEDS: *HR* LORazepam 1 MG TABLET PO SCH (21:46)
[2019-08-18] MEDS ORDERED: Melatonin 3 MG TABLET PO ONE (23:52)
[2019-08-19] MEDS ORDERED: Albumin 25% 25gram/100mL 25 GM/100 ML IV.SOLN IVPB SCH
[2019-08-19] MEDS: Ipratropium/Albuterol Neb 3 ML IH SCH ×6 (00:09→20:03)
[2019-08-19] MEDS: Albumin 25% 25gram/100mL 25 GM/100 ML IV.SOLN IVPB SCH ×4 (00:46→17:33)
[2019-08-19 02:11] LABS: Hematocrit 22.5 % (37.5-50.1); Hemoglobin 6.7 g/dL (12.9-16.9); Immature Granulocytes % 0.4 % (0-4); Lymphocytes # 0.4 K/mcL (0.6-4.6); Lymphocytes % 7.8 %; Mean Corpuscular HGB Conc 29.8 g/dL (31.6-35.5); Mean Corpuscular Hemoglobin 31.3 pg (28.0-33.3); Mean Corpuscular Volume 105.1 fL (83.0-100.0); Mean Platelet Volume 9.1 fL (9.4-12.4); Monocytes # 0.4 K/mcL (0.0-1.3); Monocytes % 8.7 %; Neutrophils # 3.7 K/mcL (1.6-8.9); Platelet Count 223 K/mcL (140-400); Red Blood Count 2.14 M/mcL (4.19-5.50); Red Cell Distribution Width 14.6 % (11.5-14.5); Segmented Neutrophils % 83.1 %; White Blood Count 4.5 K/mcL (4.3-11.1)
[2019-08-19 02:34] LABS: Calcium 9.1 mg/dL (8.6-10.3); Magnesium 2.3 mg/dL (1.6-2.6); Potassium 3.5 mEq/L (3.5-5.1)
[2019-08-19] MEDS: Budesonide/Formoterol 160/4.5 1 PUFF INH IH SCH ×2 (07:26→20:03)
[2019-08-19] MEDS: Metoprolol XL (24 HR) Succ 25 MG TAB.ER.24H PO SCH (08:17)
[2019-08-19] MEDS: *HR* LORazepam 1 MG TABLET PO SCH ×3 (08:17→21:35)
[2019-08-19] MEDS: Cyanocobalamin (B-12) 1,000 MCG TABLET PO SCH (08:17)
[2019-08-19] MEDS: Furosemide 40 MG/4 ML VIAL IVP SCH ×2 (08:17→17:32)
[2019-08-19] MEDS: BuPROPion XL (24 HR) 150 MG TABLET PO SCH (08:17)
[2019-08-19] MEDS ORDERED: Aspirin Enteric Coated 81 MG Tablet PO SCH (09:00)
[2019-08-19] MEDS ORDERED: 0.9 % Sodium Chloride 250 ML ONE (10:27)
[2019-08-19] MEDS ORDERED: MOM Conc 10 ML UD.LIQ PO PRN (12:21)
[2019-08-19] MEDS: Nystatin SUSP 5 ML UD.LIQ PO SCH ×3 (14:33→21:35)
[2019-08-19 16:27] LABS: Hematocrit 25.7 % (37.5-50.1)
[2019-08-19] MEDS: Pantoprazole 40 MG VIAL IVP SCH (17:33)
[2019-08-19] MEDS: *HR* OxyCODONE/APAP 5/325 TABLET PO PRN (21:35)
[2019-08-20] MEDS: Albumin 25% 25gram/100mL 25 GM/100 ML IV.SOLN IVPB SCH (00:04)
[2019-08-20] MEDS: Ipratropium/Albuterol Neb 3 ML IH SCH ×7 (00:21→23:22)
[2019-08-20 01:52] LABS: Hematocrit 23.8 % (37.5-50.1); Hemoglobin 7.6 g/dL (12.9-16.9); Mean Corpuscular HGB Conc 31.9 g/dL (31.6-35.5); Mean Corpuscular Hemoglobin 31.8 pg (28.0-33.3); Mean Corpuscular Volume 99.6 fL (83.0-100.0); Mean Platelet Volume 9.2 fL (9.4-12.4); Platelet Count 218 K/mcL (140-400); Red Blood Count 2.39 M/mcL (4.19-5.50); Red Cell Distribution Width 15.1 % (11.5-14.5); White Blood Count 4.4 K/mcL (4.3-11.1)
[2019-08-20 02:09] LABS: Calcium 9.5 mg/dL (8.6-10.3); Magnesium 2.3 mg/dL (1.6-2.6); Potassium 3.3 mEq/L (3.5-5.1)
[2019-08-20] MEDS: [UNRECOGNIZED DRUG - REMARK] PO SCH ×2 (03:03→21:39)
[2019-08-20] MEDS: Pantoprazole 40 MG VIAL IVP SCH ×2 (04:57→17:35)
[2019-08-20] MEDS: Budesonide/Formoterol 160/4.5 1 PUFF INH IH SCH ×2 (07:17→20:25)
[2019-08-20] MEDS: *HR* LORazepam 1 MG TABLET PO SCH ×3 (08:53→21:38)
[2019-08-20] MEDS: Metoprolol XL (24 HR) Succ 25 MG TAB.ER.24H PO SCH (08:53)
[2019-08-20] MEDS: Nystatin SUSP 5 ML UD.LIQ PO SCH ×4 (08:54→21:38)
[2019-08-20] MEDS: BuPROPion XL (24 HR) 150 MG TABLET PO SCH (08:54)
[2019-08-20] MEDS: Cyanocobalamin (B-12) 1,000 MCG TABLET PO SCH (08:54)
[2019-08-20] MEDS: Sodium Ferric Gluconat/Sucrose 125 MG in 0.9 % Sodium Chloride 100 ML IVPB SCH (08:54)
[2019-08-20 19:59] LABS: Bilirubin,Urine Negative (Negative); Blood,Urine Small (Negative); Clarity,Urine Cloudy (Clear); Color,Urine Yellow (Yellow); Glucose,Urine (UA) Normal (Normal); Ketones,Urine Negative (Negative); Leukocyte Esterase,Urine Negative (Negative); Nitrite,Urine Negative (Negative); Protein,Urine 30 mg/dL (Neg-Trace); Specific Gravity,Urine 1.017 (1.010-1.025); Urobilinogen,Urine Normal (Normal)
[2019-08-20 20:06] LABS: Protein/Creatinine Ratio,Urine 1.64 mg/mg (0.00-0.20); Sodium, Urine 29.4 mEq/L
[2019-08-20 20:38] LABS: Bacteria,Urine None Seen per hpf (None-Few); Hyaline Casts,Urine Few per lpf (None-Few); RBC,Urine 0-3 per hpf (0-3); Squamous Epithelial Cell,Urine Many per lpf (None-Few)
[2019-08-21] MEDS: Ipratropium/Albuterol Neb 3 ML IH SCH ×5 (03:56→20:19)
[2019-08-21 04:37] LABS: Hematocrit 28.7 % (37.5-50.1); Hemoglobin 8.5 g/dL (12.9-16.9); Mean Corpuscular HGB Conc 29.6 g/dL (31.6-35.5); Mean Corpuscular Volume 104.7 fL (83.0-100.0); Mean Platelet Volume 9.1 fL (9.4-12.4); Platelet Count 231 K/mcL (140-400); Red Blood Count 2.74 M/mcL (4.19-5.50); Red Cell Distribution Width 15.2 % (11.5-14.5); White Blood Count 5.6 K/mcL (4.3-11.1)
[2019-08-21 04:50] LABS: Albumin 3.6 g/dL (3.5-5.7); Magnesium 2.3 mg/dL (1.6-2.6); Phosphorous 4.8 mg/dL (2.7-4.5); Potassium 3.7 mEq/L (3.5-5.1)
[2019-08-21 04:51] LABS: Potassium 3.6 mEq/L (3.5-5.1)
[2019-08-21] MEDS: Pantoprazole 40 MG VIAL IVP SCH ×2 (07:17→17:36)
[2019-08-21] MEDS: Budesonide/Formoterol 160/4.5 1 PUFF INH IH SCH ×2 (07:53→20:19)
[2019-08-21] MEDS: Metoprolol XL (24 HR) Succ 25 MG TAB.ER.24H PO SCH (08:46)
[2019-08-21] MEDS: *HR* LORazepam 1 MG TABLET PO SCH ×3 (08:46→21:40)
[2019-08-21] MEDS: Aspirin Enteric Coated 81 MG Tablet PO SCH (08:47)
[2019-08-21] MEDS: BuPROPion XL (24 HR) 150 MG TABLET PO SCH (08:47)
[2019-08-21] MEDS: Cyanocobalamin (B-12) 1,000 MCG TABLET PO SCH (08:47)
[2019-08-21] MEDS: Nystatin SUSP 5 ML UD.LIQ PO SCH ×4 (08:47→21:40)
[2019-08-21] MEDS ORDERED: Furosemide 40 MG in 0.9 % Sodium Chloride 50 ML IV ONE ×2 (11:24→15:00)
[2019-08-21] MEDS: Albumin 25% 25gram/100mL 25 GM/100 ML IV.SOLN IVC SCH ×2 (12:40→14:15)
[2019-08-21] MEDS: *HR* OxyCODONE/APAP 5/325 TABLET PO PRN (21:40)
[2019-08-21] MEDS: [UNRECOGNIZED DRUG - REMARK] PO SCH (21:47)
[2019-08-22] MEDS: Ipratropium/Albuterol Neb 3 ML IH SCH ×7 (00:15→23:33)
[2019-08-22 02:42] LABS: Hematocrit 25.1 % (37.5-50.1); Hemoglobin 7.3 g/dL (12.9-16.9); Mean Corpuscular HGB Conc 29.1 g/dL (31.6-35.5); Mean Corpuscular Hemoglobin 31.2 pg (28.0-33.3); Mean Corpuscular Volume 107.3 fL (83.0-100.0); Mean Platelet Volume 8.9 fL (9.4-12.4); Platelet Count 158 K/mcL (140-400); Red Blood Count 2.34 M/mcL (4.19-5.50); Red Cell Distribution Width 15.2 % (11.5-14.5); White Blood Count 5.2 K/mcL (4.3-11.1)
[2019-08-22 03:16] LABS: Calcium 8.8 mg/dL (8.6-10.3); Potassium 3.4 mEq/L (3.5-5.1)
[2019-08-22] MEDS: Pantoprazole 40 MG VIAL IVP SCH ×2 (05:56→17:21)
[2019-08-22] MEDS ORDERED: Albumin 25% 25gram/100mL 25 GM/100 ML IV.SOLN IVPB ONE (08:06)
[2019-08-22] MEDS ORDERED: Furosemide 80 MG in 0.9 % Sodium Chloride 50 ML IVPB ONE (08:06)
[2019-08-22] MEDS: Aspirin Enteric Coated 81 MG Tablet PO SCH (09:32)
[2019-08-22] MEDS: *HR* LORazepam 1 MG TABLET PO SCH (09:33)
[2019-08-22] MEDS: metOLazone 5 MG TABLET PO SCH (09:33)
[2019-08-22] MEDS: Cyanocobalamin (B-12) 1,000 MCG TABLET PO SCH (09:33)
[2019-08-22] MEDS: Metoprolol XL (24 HR) Succ 25 MG TAB.ER.24H PO SCH (09:33)
[2019-08-22] MEDS: BuPROPion XL (24 HR) 150 MG TABLET PO SCH (09:33)
[2019-08-22] MEDS: Nystatin SUSP 5 ML UD.LIQ PO SCH ×4 (09:33→21:02)
[2019-08-22] MEDS: Budesonide/Formoterol 160/4.5 1 PUFF INH IH SCH ×2 (11:20→20:07)
[2019-08-22] MEDS ORDERED: SODIUM CHLORIDE/NAHCO3/KCL/PEG 4,000 ML SOLN.RECON PO ONE (17:00)
[2019-08-22] MEDS: [UNRECOGNIZED DRUG - REMARK] PO SCH (21:02)
[2019-08-23] MEDS ORDERED: *HR* LORazepam 2 MG/ML VIAL IVP ONE ×2 (02:47→09:18)
[2019-08-23] MEDS: Ipratropium/Albuterol Neb 3 ML IH SCH ×5 (04:23→19:59)
[2019-08-23] MEDS: Pantoprazole 40 MG VIAL IVP SCH ×2 (05:43→17:06)
[2019-08-23 05:53] LABS: Basophils % 0.4 %; Eosinophils # 0.1 K/mcL (0.0-0.6); Eosinophils % 1.1 %; Hematocrit 25.7 % (37.5-50.1); Hemoglobin 7.7 g/dL (12.9-16.9); Immature Granulocytes % 0.4 % (0-4); Lymphocytes # 0.5 K/mcL (0.6-4.6); Mean Corpuscular Hemoglobin 31.4 pg (28.0-33.3); Mean Corpuscular Volume 104.9 fL (83.0-100.0); Mean Platelet Volume 9.7 fL (9.4-12.4); Monocytes # 0.5 K/mcL (0.0-1.3); Monocytes % 9.7 %; Neutrophils # 4.2 K/mcL (1.6-8.9); Platelet Count 170 K/mcL (140-400); Red Blood Count 2.45 M/mcL (4.19-5.50); Red Cell Distribution Width 14.9 % (11.5-14.5); Segmented Neutrophils % 78.4 %; White Blood Count 5.4 K/mcL (4.3-11.1)
[2019-08-23 05:56] LABS: INR 1.3; Prothrombin Time 14.2 Seconds (9.4-12.1)
[2019-08-23 05:57] LABS: Activated Partial Thrombo Time 32.3 Seconds (26.0-36.0)
[2019-08-23 06:19] LABS: Calcium 8.9 mg/dL (8.6-10.3); Potassium 3.8 mEq/L (3.5-5.1)
[2019-08-23] MEDS: Budesonide/Formoterol 160/4.5 1 PUFF INH IH SCH (07:35)
[2019-08-23] MEDS: Nystatin SUSP 5 ML UD.LIQ PO SCH ×4 (09:34→22:51)
[2019-08-23] MEDS: Piperacillin/Tazobactam 3.375 GM in 0.9 % Sodium Chloride Mini Bag 100 ML IVPB SCH ×2 (09:34→17:06)
[2019-08-23] MEDS: Aspirin Enteric Coated 81 MG Tablet PO SCH (09:35)
[2019-08-23] MEDS: Cyanocobalamin (B-12) 1,000 MCG TABLET PO SCH (09:35)
[2019-08-23] MEDS: BuPROPion XL (24 HR) 150 MG TABLET PO SCH (09:35)
[2019-08-23] MEDS: metOLazone 5 MG TABLET PO SCH (11:11)
[2019-08-23] MEDS: Metoprolol XL (24 HR) Succ 25 MG TAB.ER.24H PO SCH (11:11)
[2019-08-23] MEDS ORDERED: *HR* Heparin 10,000 UNIT/10 ML VIAL IV PRN (13:18)
[2019-08-23] MEDS ORDERED: 0.9 % Sodium Chloride 250 ML IVC PRN (13:18)
[2019-08-23] MEDS ORDERED: 0.9 % Sodium Chloride 1,000 ML PRIME SCH (13:30)
[2019-08-23] MEDS ORDERED: *HR* Heparin 5,000 UNIT/ML VIAL ONE (13:44)
[2019-08-23] MEDS: Sodium Ferric Gluconat/Sucrose 125 MG in 0.9 % Sodium Chloride 100 ML IVPB SCH (14:38)
[2019-08-23 15:46] LABS: Hepatitis B Surface Antibody < 3.10 mIU/mL
[2019-08-23 15:55] LABS: Hepatitis B Surface Antigen Nonreactive (Nonreactive)
[2019-08-23] MEDS: *HR* OxyCODONE/APAP 5/325 TABLET PO PRN ×2 (16:12→22:53)
[2019-08-23 16:59] LABS: RBC,Pleural Fluid < 0.002 M/mcL
[2019-08-23 17:18] LABS: Glucose,Pleural Fluid 102 mg/dL (No Ref Range); LDH,Pleural Fluid 76 Units/L (No Ref Range); Total Protein,Pleural Fluid < 3.0 g/dL
[2019-08-23 19:11] LABS: Appearance of Pleural Fl Clear (Clear)
[2019-08-23 19:20] LABS: Basophils,Pleural Fluid 0 %; Eosinophils,Pleural Fluid 0 %; Monocytes,Pleural Fluid 0 %
[2019-08-23] MEDS: Loratadine 10 MG TABLET PO SCH (22:51)
[2019-08-24] MEDS: Ipratropium/Albuterol Neb 3 ML IH SCH ×6 (00:07→20:44)
[2019-08-24] MEDS: Budesonide/Formoterol 160/4.5 1 PUFF INH IH SCH ×3 (00:07→20:44)
[2019-08-24 06:22] LABS: Basophils % 0.2 %; Eosinophils # 0.1 K/mcL (0.0-0.6); Eosinophils % 2.2 %; Hematocrit 23.8 % (37.5-50.1); Immature Granulocytes % 0.2 % (0-4); Lymphocytes # 0.4 K/mcL (0.6-4.6); Lymphocytes % 8.7 %; Mean Corpuscular HGB Conc 29.4 g/dL (31.6-35.5); Mean Corpuscular Hemoglobin 31.4 pg (28.0-33.3); Mean Corpuscular Volume 106.7 fL (83.0-100.0); Mean Platelet Volume 9.6 fL (9.4-12.4); Monocytes # 0.4 K/mcL (0.0-1.3); Monocytes % 9.1 %; Neutrophils # 3.7 K/mcL (1.6-8.9); Platelet Count 148 K/mcL (140-400); Red Blood Count 2.23 M/mcL (4.19-5.50); Red Cell Distribution Width 14.9 % (11.5-14.5); Segmented Neutrophils % 79.6 %; White Blood Count 4.6 K/mcL (4.3-11.1)
[2019-08-24] MEDS: Pantoprazole 40 MG VIAL IVP SCH ×2 (06:38→17:36)
[2019-08-24] MEDS: Piperacillin/Tazobactam 3.375 GM in 0.9 % Sodium Chloride Mini Bag 100 ML IVPB SCH ×2 (06:38→17:36)
[2019-08-24 06:57] LABS: Calcium 8.5 mg/dL (8.6-10.3); Potassium 3.9 mEq/L (3.5-5.1)
[2019-08-24] MEDS ORDERED: 0.9 % Sodium Chloride 250 ML IVC PRN (07:21)
[2019-08-24] MEDS ORDERED: *HR* Heparin 10,000 UNIT/10 ML VIAL IV PRN (07:21)
[2019-08-24] MEDS ORDERED: 0.9 % Sodium Chloride 1,000 ML PRIME SCH (07:30)
[2019-08-24] MEDS: BuPROPion XL (24 HR) 150 MG TABLET PO SCH (13:17)
[2019-08-24] MEDS: Metoprolol XL (24 HR) Succ 25 MG TAB.ER.24H PO SCH (13:17)
[2019-08-24] MEDS: metOLazone 5 MG TABLET PO SCH (13:17)
[2019-08-24] MEDS: Aspirin Enteric Coated 81 MG Tablet PO SCH (13:17)
[2019-08-24] MEDS: Cyanocobalamin (B-12) 1,000 MCG TABLET PO SCH (13:18)
[2019-08-24] MEDS: Nystatin SUSP 5 ML UD.LIQ PO SCH ×4 (13:18→20:07)
[2019-08-24] MEDS: Fluticasone Propionate Nasal 50 MCG/SPRAY BOTTLE NS SCH (13:19)
[2019-08-24] MEDS: Loratadine 10 MG TABLET PO SCH (20:07)
[2019-08-24] MEDS: *HR* LORazepam 1 MG TABLET PO PRN (20:07)
[2019-08-25] MEDS: Ipratropium/Albuterol Neb 3 ML IH SCH ×6 (00:10→20:00)
[2019-08-25 05:03] LABS: Basophils % 0.2 %; Eosinophils # 0.2 K/mcL (0.0-0.6); Eosinophils % 3.8 %; Hematocrit 26.5 % (37.5-50.1); Immature Granulocytes % 0.5 % (0-4); Lymphocytes # 0.6 K/mcL (0.6-4.6); Lymphocytes % 14.1 %; Mean Corpuscular HGB Conc 30.2 g/dL (31.6-35.5); Mean Corpuscular Volume 102.7 fL (83.0-100.0); Mean Platelet Volume 9.7 fL (9.4-12.4); Monocytes # 0.5 K/mcL (0.0-1.3); Monocytes % 11.7 %; Platelet Count 161 K/mcL (140-400); Red Blood Count 2.58 M/mcL (4.19-5.50); Segmented Neutrophils % 69.7 %; White Blood Count 4.3 K/mcL (4.3-11.1)
[2019-08-25 05:10] LABS: Calcium 8.6 mg/dL (8.6-10.3); Potassium 3.5 mEq/L (3.5-5.1)
[2019-08-25] MEDS: Pantoprazole 40 MG VIAL IVP SCH ×2 (05:34→16:54)
[2019-08-25] MEDS: Piperacillin/Tazobactam 3.375 GM in 0.9 % Sodium Chloride Mini Bag 100 ML IVPB SCH ×2 (05:34→16:54)
[2019-08-25] MEDS ORDERED: *HR* Heparin 10,000 UNIT/10 ML VIAL IV PRN (06:38)
[2019-08-25] MEDS ORDERED: 0.9 % Sodium Chloride 250 ML IVC PRN (06:38)
[2019-08-25] MEDS ORDERED: 0.9 % Sodium Chloride 1,000 ML PRIME SCH (06:45)
[2019-08-25] MEDS: Budesonide/Formoterol 160/4.5 1 PUFF INH IH SCH ×2 (07:25→20:00)
[2019-08-25] MEDS: Aspirin Enteric Coated 81 MG Tablet PO SCH (07:59)
[2019-08-25] MEDS: BuPROPion XL (24 HR) 150 MG TABLET PO SCH (07:59)
[2019-08-25] MEDS: Cyanocobalamin (B-12) 1,000 MCG TABLET PO SCH (07:59)
[2019-08-25] MEDS: Nystatin SUSP 5 ML UD.LIQ PO SCH ×4 (08:00→20:25)
[2019-08-25] MEDS: Fluticasone Propionate Nasal 50 MCG/SPRAY BOTTLE NS SCH (08:09)
[2019-08-25] MEDS: metOLazone 5 MG TABLET PO SCH (15:06)
[2019-08-25] MEDS: Metoprolol XL (24 HR) Succ 25 MG TAB.ER.24H PO SCH (15:06)
[2019-08-25] MEDS: Sodium Ferric Gluconat/Sucrose 125 MG in 0.9 % Sodium Chloride 100 ML IVPB SCH (15:07)
[2019-08-25] MEDS: Loratadine 10 MG TABLET PO SCH (20:25)
[2019-08-26] MEDS: Ipratropium/Albuterol Neb 3 ML IH SCH ×7 (00:12→23:46)
[2019-08-26 03:00] LABS: Hematocrit 27.9 % (37.5-50.1); Hemoglobin 8.5 g/dL (12.9-16.9)
[2019-08-26 03:17] LABS: Calcium 8.4 mg/dL (8.6-10.3); Magnesium 2.2 mg/dL (1.6-2.6); Phosphorous 1.4 mg/dL (2.7-4.5); Potassium 3.6 mEq/L (3.5-5.1)
[2019-08-26] MEDS: Pantoprazole 40 MG VIAL IVP SCH ×2 (05:42→17:32)
[2019-08-26] MEDS: Piperacillin/Tazobactam 3.375 GM in 0.9 % Sodium Chloride Mini Bag 100 ML IVPB SCH ×2 (05:42→17:32)
[2019-08-26] MEDS: Budesonide/Formoterol 160/4.5 1 PUFF INH IH SCH ×2 (07:30→19:42)
[2019-08-26] MEDS: metOLazone 5 MG TABLET PO SCH (09:57)
[2019-08-26] MEDS: Aspirin Enteric Coated 81 MG Tablet PO SCH (09:57)
[2019-08-26] MEDS: Fluticasone Propionate Nasal 50 MCG/SPRAY BOTTLE NS SCH (09:58)
[2019-08-26] MEDS: Nystatin SUSP 5 ML UD.LIQ PO SCH ×4 (09:58→21:37)
[2019-08-26] MEDS: Cyanocobalamin (B-12) 1,000 MCG TABLET PO SCH (09:58)
[2019-08-26] MEDS: BuPROPion XL (24 HR) 150 MG TABLET PO SCH (09:58)
[2019-08-26] MEDS: Metoprolol XL (24 HR) Succ 25 MG TAB.ER.24H PO SCH (09:58)
[2019-08-26] MEDS: Loratadine 10 MG TABLET PO SCH (21:37)
[2019-08-27] MEDS: Ipratropium/Albuterol Neb 3 ML IH SCH ×6 (04:10→23:57)
[2019-08-27 04:17] LABS: Basophils % 0.6 %; Eosinophils # 0.2 K/mcL (0.0-0.6); Eosinophils % 4.6 %; Immature Granulocytes % 0.6 % (0-4); Lymphocytes # 0.8 K/mcL (0.6-4.6); Lymphocytes % 16.8 %; Mean Corpuscular Hemoglobin 30.9 pg (28.0-33.3); Mean Corpuscular Volume 99.7 fL (83.0-100.0); Mean Platelet Volume 9.9 fL (9.4-12.4); Monocytes # 0.5 K/mcL (0.0-1.3); Monocytes % 10.7 %; Neutrophils # 3.2 K/mcL (1.6-8.9); Platelet Count 183 K/mcL (140-400); Red Blood Count 2.91 M/mcL (4.19-5.50); Red Cell Distribution Width 15.4 % (11.5-14.5); Segmented Neutrophils % 66.7 %; White Blood Count 4.8 K/mcL (4.3-11.1)
[2019-08-27 04:33] LABS: Magnesium 2.4 mg/dL (1.6-2.6); Phosphorous 3.5 mg/dL (2.7-4.5)
[2019-08-27 04:34] LABS: Calcium 8.6 mg/dL (8.6-10.3); Potassium 3.5 mEq/L (3.5-5.1)
[2019-08-27] MEDS: Piperacillin/Tazobactam 3.375 GM in 0.9 % Sodium Chloride Mini Bag 100 ML IVPB SCH (05:38)
[2019-08-27] MEDS: Pantoprazole 40 MG VIAL IVP SCH (05:38)
[2019-08-27] MEDS: Budesonide/Formoterol 160/4.5 1 PUFF INH IH SCH ×2 (07:30→20:11)
[2019-08-27] MEDS ORDERED: 0.9 % Sodium Chloride 250 ML IVC PRN (08:04)
[2019-08-27] MEDS: metOLazone 5 MG TABLET PO SCH (08:48)
[2019-08-27] MEDS: Metoprolol XL (24 HR) Succ 25 MG TAB.ER.24H PO SCH (08:48)
[2019-08-27] MEDS: Nystatin SUSP 5 ML UD.LIQ PO SCH ×4 (08:48→19:59)
[2019-08-27] MEDS: BuPROPion XL (24 HR) 150 MG TABLET PO SCH (08:48)
[2019-08-27] MEDS: Cyanocobalamin (B-12) 1,000 MCG TABLET PO SCH (08:48)
[2019-08-27] MEDS: Aspirin Enteric Coated 81 MG Tablet PO SCH (08:48)
[2019-08-27] MEDS: Fluticasone Propionate Nasal 50 MCG/SPRAY BOTTLE NS SCH (08:49)
[2019-08-27] MEDS: Sodium Ferric Gluconat/Sucrose 125 MG in 0.9 % Sodium Chloride 100 ML IVPB SCH (08:54)
[2019-08-27] MEDS: cefTRIAXone 2,000 MG in Water for inj. (sterile) 20 ML IVP SCH (18:35)
[2019-08-27] MEDS: Apixaban 5 MG TABLET PO SCH (19:59)
[2019-08-27] MEDS: Loratadine 10 MG TABLET PO SCH (19:59)
[2019-08-28 01:03] LABS: Basophils % 0.4 %; Eosinophils # 0.2 K/mcL (0.0-0.6); Eosinophils % 4.1 %; Hematocrit 30.2 % (37.5-50.1); Hemoglobin 9.2 g/dL (12.9-16.9); Immature Granulocytes % 0.9 % (0-4); Lymphocytes # 1.1 K/mcL (0.6-4.6); Lymphocytes % 19.6 %; Mean Corpuscular HGB Conc 30.5 g/dL (31.6-35.5); Mean Corpuscular Volume 101.7 fL (83.0-100.0); Monocytes # 0.6 K/mcL (0.0-1.3); Monocytes % 10.7 %; Neutrophils # 3.5 K/mcL (1.6-8.9); Platelet Count 172 K/mcL (140-400); Red Blood Count 2.97 M/mcL (4.19-5.50); Red Cell Distribution Width 15.3 % (11.5-14.5); Segmented Neutrophils % 64.3 %; White Blood Count 5.4 K/mcL (4.3-11.1)
[2019-08-28 01:20] LABS: Calcium 8.6 mg/dL (8.6-10.3); Potassium 3.7 mEq/L (3.5-5.1)
[2019-08-28] MEDS: Ipratropium/Albuterol Neb 3 ML IH SCH ×5 (04:03→20:44)
[2019-08-28] MEDS: Apixaban 5 MG TABLET PO SCH (07:44)
[2019-08-28] MEDS: BuPROPion XL (24 HR) 150 MG TABLET PO SCH (07:44)
[2019-08-28] MEDS: Metoprolol XL (24 HR) Succ 25 MG TAB.ER.24H PO SCH (07:44)
[2019-08-28] MEDS: Nystatin SUSP 5 ML UD.LIQ PO SCH ×4 (07:44→19:27)
[2019-08-28] MEDS: Cyanocobalamin (B-12) 1,000 MCG TABLET PO SCH (07:45)
[2019-08-28] MEDS: Aspirin Enteric Coated 81 MG Tablet PO SCH (07:45)
[2019-08-28] MEDS: Budesonide/Formoterol 160/4.5 1 PUFF INH IH SCH ×2 (07:48→20:44)
[2019-08-28] MEDS ORDERED: *HR* Heparin 5,000 UNIT/ML VIAL IVP ONE (09:36)
[2019-08-28] MEDS ORDERED: *HR* Heparin 5,000 UNIT/ML VIAL IVP PRN ×3 (09:36→18:01)
[2019-08-28] MEDS ORDERED: Heparin 25,000 UNIT/250 ML D5W 25,000 UNIT/250 ML IV.SOLN IVC SCH (09:45)
[2019-08-28 10:57] LABS: Heparin anti-factor XA UFH 0.53 IU/mL (0.30-0.70)
[2019-08-28 10:58] LABS: INR 1.3
[2019-08-28] MEDS: Fluticasone Propionate Nasal 50 MCG/SPRAY BOTTLE NS SCH (11:00)
[2019-08-28 11:06] LABS: Hematocrit 29.6 % (37.5-50.1); Hemoglobin 9.2 g/dL (12.9-16.9); Mean Corpuscular HGB Conc 31.1 g/dL (31.6-35.5); Mean Corpuscular Hemoglobin 30.7 pg (28.0-33.3); Mean Corpuscular Volume 98.7 fL (83.0-100.0); Mean Platelet Volume 9.6 fL (9.4-12.4); Platelet Count 178 K/mcL (140-400); Red Cell Distribution Width 15.1 % (11.5-14.5); White Blood Count 5.2 K/mcL (4.3-11.1)
[2019-08-28] MEDS: *HR* OxyCODONE/APAP 5/325 TABLET PO PRN (15:33)
[2019-08-28] MEDS: cefTRIAXone 2,000 MG in Water for inj. (sterile) 20 ML IVP SCH (15:33)
[2019-08-28] MEDS: Heparin 25,000 UNIT/250 ML D5W 25,000 UNIT/250 ML IV.SOLN IVC SCH (18:32)
[2019-08-28] MEDS: *HR* Heparin 5,000 UNIT/ML VIAL IVP PRN (18:33)
[2019-08-28] MEDS: Loratadine 10 MG TABLET PO SCH (19:27)
[2019-08-29] MEDS: Ipratropium/Albuterol Neb 3 ML IH SCH ×6 (00:07→20:46)
[2019-08-29 01:01] LABS: Calcium 8.8 mg/dL (8.6-10.3); Potassium 3.8 mEq/L (3.5-5.1)
[2019-08-29] MEDS: *HR* Heparin 5,000 UNIT/ML VIAL IVP PRN ×2 (01:30→09:04)
[2019-08-29] MEDS: Budesonide/Formoterol 160/4.5 1 PUFF INH IH SCH ×2 (07:56→20:46)
[2019-08-29] MEDS: Nystatin SUSP 5 ML UD.LIQ PO SCH ×4 (09:09→20:04)
[2019-08-29] MEDS: Metoprolol XL (24 HR) Succ 25 MG TAB.ER.24H PO SCH (09:09)
[2019-08-29] MEDS: BuPROPion XL (24 HR) 150 MG TABLET PO SCH (09:09)
[2019-08-29] MEDS: Aspirin Enteric Coated 81 MG Tablet PO SCH (09:09)
[2019-08-29] MEDS: Fluticasone Propionate Nasal 50 MCG/SPRAY BOTTLE NS SCH (09:10)
[2019-08-29] MEDS: Cyanocobalamin (B-12) 1,000 MCG TABLET PO SCH (09:10)
[2019-08-29] MEDS: cefTRIAXone 2,000 MG in Water for inj. (sterile) 20 ML IVP SCH (14:56)
[2019-08-29] MEDS: Heparin 25,000 UNIT/250 ML D5W 25,000 UNIT/250 ML IV.SOLN IVC SCH (15:08)
[2019-08-29] MEDS: Loratadine 10 MG TABLET PO SCH (20:04)
[2019-08-30] MEDS: Ipratropium/Albuterol Neb 3 ML IH SCH ×7 (00:28→23:48)
[2019-08-30] MEDS: Heparin 25,000 UNIT/250 ML D5W 25,000 UNIT/250 ML IV.SOLN IVC SCH (05:07)
[2019-08-30 05:43] LABS: Basophils % 0.4 %; Eosinophils # 0.2 K/mcL (0.0-0.6); Eosinophils % 3.9 %; Hematocrit 28.6 % (37.5-50.1); Hemoglobin 9.1 g/dL (12.9-16.9); Immature Granulocytes % 0.9 % (0-4); Lymphocytes % 18.2 %; Mean Corpuscular HGB Conc 31.8 g/dL (31.6-35.5); Mean Corpuscular Hemoglobin 31.1 pg (28.0-33.3); Mean Corpuscular Volume 97.6 fL (83.0-100.0); Mean Platelet Volume 9.9 fL (9.4-12.4); Monocytes # 0.5 K/mcL (0.0-1.3); Monocytes % 9.3 %; Neutrophils # 3.9 K/mcL (1.6-8.9); Platelet Count 190 K/mcL (140-400); Red Blood Count 2.93 M/mcL (4.19-5.50); Segmented Neutrophils % 67.3 %; White Blood Count 5.7 K/mcL (4.3-11.1)
[2019-08-30 06:09] LABS: Calcium 8.7 mg/dL (8.6-10.3); Magnesium 2.4 mg/dL (1.6-2.6); Phosphorous 5.1 mg/dL (2.7-4.5); Potassium 3.7 mEq/L (3.5-5.1)
[2019-08-30] MEDS ORDERED: 0.9 % Sodium Chloride 250 ML IVC PRN (07:16)
[2019-08-30] MEDS: Budesonide/Formoterol 160/4.5 1 PUFF INH IH SCH ×2 (07:36→20:18)
[2019-08-30] MEDS: *HR* LORazepam 1 MG TABLET PO PRN (07:48)
[2019-08-30] MEDS: Nystatin SUSP 5 ML UD.LIQ PO SCH ×4 (10:52→22:30)
[2019-08-30] MEDS: Aspirin Enteric Coated 81 MG Tablet PO SCH (11:49)
[2019-08-30] MEDS: Fluticasone Propionate Nasal 50 MCG/SPRAY BOTTLE NS SCH (11:50)
[2019-08-30] MEDS: BuPROPion XL (24 HR) 150 MG TABLET PO SCH (11:50)
[2019-08-30] MEDS ORDERED: Heparin 1,000 UNITS/500 mL 500 ML ONE (12:51)
[2019-08-30] MEDS ORDERED: 0.9 % Sodium Chloride 500 ML ONE (12:58)
[2019-08-30] MEDS ORDERED: *HR* FentaNYL (PF) 100 MCG/2 ML VIAL IVP ONE (13:03)
[2019-08-30] MEDS ORDERED: *HR* Midazolam HCl 2 MG/2 ML VIAL IVP ONE (13:03)
[2019-08-30] MEDS ORDERED: *HR* FentaNYL (PF) 100 MCG/2 ML VIAL ONE (13:03)
[2019-08-30] MEDS ORDERED: *HR* Midazolam HCl 2 MG/2 ML VIAL ONE (13:04)
[2019-08-30] MEDS ORDERED: *HR* Heparin 5,000 UNIT/ML VIAL ONE (13:09)
[2019-08-30] MEDS: Metoprolol XL (24 HR) Succ 25 MG TAB.ER.24H PO SCH (14:06)
[2019-08-30] MEDS: Cyanocobalamin (B-12) 1,000 MCG TABLET PO SCH (14:06)
[2019-08-30] MEDS: cefTRIAXone 2,000 MG in Water for inj. (sterile) 20 ML IVP SCH (14:06)
[2019-08-30] MEDS: Sodium Ferric Gluconat/Sucrose 125 MG in 0.9 % Sodium Chloride 100 ML IVPB SCH (14:13)
[2019-08-30] MEDS ORDERED: CeFAZolin Premix DUPLEX 2,000 MG/50 ML BAG IVPB ONE (15:00)
[2019-08-30] MEDS: Apixaban 5 MG TABLET PO SCH ×2 (16:47→22:30)
[2019-08-30] MEDS: *HR* OxyCODONE/APAP 5/325 TABLET PO PRN (22:30)
[2019-08-30] MEDS: Loratadine 10 MG TABLET PO SCH (22:31)
[2019-08-31 03:20] LABS: Calcium 8.9 mg/dL (8.6-10.3); Potassium 3.9 mEq/L (3.5-5.1)
[2019-08-31] MEDS: Ipratropium/Albuterol Neb 3 ML IH SCH ×4 (03:59→15:27)
[2019-08-31] MEDS: Budesonide/Formoterol 160/4.5 1 PUFF INH IH SCH (07:35)
[2019-08-31] MEDS: *HR* OxyCODONE/APAP 5/325 TABLET PO PRN (08:52)
[2019-08-31] MEDS: BuPROPion XL (24 HR) 150 MG TABLET PO SCH (08:52)
[2019-08-31] MEDS: Aspirin Enteric Coated 81 MG Tablet PO SCH (08:52)
[2019-08-31] MEDS: Cyanocobalamin (B-12) 1,000 MCG TABLET PO SCH (08:53)
[2019-08-31] MEDS: Apixaban 5 MG TABLET PO SCH (08:53)
[2019-08-31] MEDS: Nystatin SUSP 5 ML UD.LIQ PO SCH ×2 (08:53→12:54)
[2019-08-31 09:14] LABS: Hematocrit 30.1 % (37.5-50.1); Hemoglobin 9.6 g/dL (12.9-16.9)
[2019-08-31] MEDS: Fluticasone Propionate Nasal 50 MCG/SPRAY BOTTLE NS SCH (09:16)
[2019-08-31] MEDS ORDERED: 0.9 % Sodium Chloride 250 ML IVC PRN (09:55)
[2019-08-31] MEDS: Metoprolol XL (24 HR) Succ 25 MG TAB.ER.24H PO SCH (12:34)
[2019-08-31] MEDS ORDERED: *HR* Heparin 10,000 UNIT/10 ML VIAL IV PRN (14:24)
[2019-08-31 15:59] VITALS: BP 119/72
== END 2019-08-31 16:54 | disposition home health service (06) | DRG 291 ==
LOC: 2NNU 12:54 → EMEROOARM 12:54 → SUATTDRO 18:09 → 2NNU 20:05 → SUATTDRO 08-19 14:08 → 2NENU 08-20 10:44
PROVIDERS: ADMIT Family Medicine; ATTEND Internal Medicine
PROC: IRPERMA (2019-08-30 11:00)

== ENCOUNTER 2019-12-09 11:47 | Inpatient (IN) ==
[2019-12-09 12:03] LABS: Hematocrit 30.9 % (37.5-50.1); Mean Corpuscular HGB Conc 29.1 g/dL (31.6-35.5); Mean Corpuscular Hemoglobin 32.5 pg (28.0-33.3); Mean Corpuscular Volume 111.6 fL (83.0-100.0); Platelet Count 168 K/mcL (140-400); Red Blood Count 2.77 M/mcL (4.19-5.50); Red Cell Distribution Width 14.3 % (11.5-14.5); White Blood Count 4.9 K/mcL (4.3-11.1)
[2019-12-09 12:10] LABS: INR 1.4; Prothrombin Time 16.4 Seconds (9.4-12.1)
[2019-12-09 12:13] LABS: Activated Partial Thrombo Time 35.9 Seconds (26.0-36.0)
[2019-12-09 12:22] LABS: BUN/Creatinine Ratio 14 (6-26); Blood Urea Nitrogen 22 mg/dL (8-23); Calcium 8.9 mg/dL (8.6-10.3); Carbon Dioxide 37 mEq/L (23-29); Chloride 103 mEq/L (98-107); Ethanol < 10 mg/dL (Less than 10); Glucose 119 mg/dL (70-105); Osmolality,Calculated 292 (280-300); Potassium 3.6 mEq/L (3.5-5.1); Sodium 139 mEq/L (136-145); eGFR For African Americans 54 (> 60); eGFR For Non-African Americans 45 (> 60)
[2019-12-09 12:24] LABS: ABG Base Excess 17 mEq/L (-2 to 3); ABG HCO3 44 mEq/L (21-27); ABG Oxygen Saturation 87 % (95-98); ABG PCO2 72 mmHg (35-45); ABG PO2 56 mmHg (85-104); ABG TCO2 47 mEq/L (20-26)
[2019-12-09 12:32] LABS: Troponin I < 0.03 ng/mL (< 0.04)
[2019-12-09] MEDS ORDERED: Furosemide 40 MG in 0.9 % Sodium Chloride 50 ML IV ONE (14:22)
[2019-12-09] MEDS ORDERED: Ondansetron 4 MG/2 ML VIAL IVP PRN (15:29)
[2019-12-09] MEDS ORDERED: Naloxone 0.4 MG/ML INJ IVP PRN (15:29)
[2019-12-09 16:00] LABS: Bilirubin,Urine Negative (Negative); Blood,Urine Negative (Negative); Clarity,Urine Clear (Clear); Color,Urine Yellow (Yellow); Glucose,Urine (UA) Normal (Normal); Ketones,Urine Negative (Negative); Leukocyte Esterase,Urine Negative (Negative); Nitrite,Urine Negative (Negative); Protein,Urine 100 mg/dL (Neg-Trace); Specific Gravity,Urine 1.014 (1.010-1.025); Urobilinogen,Urine Normal (Normal)
[2019-12-09 16:04] LABS: Bacteria,Urine None Seen per hpf (None-Few); Hyaline Casts,Urine None Seen per lpf (None-Few); RBC,Urine 0-3 per hpf (0-3); Squamous Epithelial Cell,Urine Many per lpf (None-Few)
[2019-12-09] MEDS: Apixaban 5 MG TABLET PO SCH (19:32)
[2019-12-09] MEDS: Furosemide 40 MG/4 ML VIAL IVP SCH (19:33)
[2019-12-09] MEDS ORDERED: Perflutren Lipid Microsphere 1.3 ML in 0.9 % Sodium Chloride 8.7 ML IVP ONE (20:48)
[2019-12-10 03:19] LABS: Eosinophils % 2.8 %; Mean Corpuscular Volume 111.2 fL (83.0-100.0); Red Cell Distribution Width 14.4 % (11.5-14.5)
[2019-12-10 03:20] LABS: Basophils % 0.3 %; Eosinophils # 0.2 K/mcL (0.0-0.6); Hematocrit 30.9 % (37.5-50.1); Immature Granulocytes % 0.3 % (0-4); Immature Platelets 2.4 % (1.1-6.1); Lymphocytes # 1.1 K/mcL (0.6-4.6); Lymphocytes % 19.1 %; Mean Corpuscular HGB Conc 29.1 g/dL (31.6-35.5); Mean Corpuscular Hemoglobin 32.4 pg (28.0-33.3); Mean Platelet Volume 10.1 fL (9.4-12.4); Monocytes # 0.6 K/mcL (0.0-1.3); Monocytes % 9.9 %; Neutrophils # 3.9 K/mcL (1.6-8.9); Platelet Count 180 K/mcL (140-400); Red Blood Count 2.78 M/mcL (4.19-5.50); Segmented Neutrophils % 67.6 %; White Blood Count 5.8 K/mcL (4.3-11.1)
[2019-12-10 03:24] LABS: Calcium 8.7 mg/dL (8.6-10.3); Potassium 3.9 mEq/L (3.5-5.1)
[2019-12-10 03:45] LABS: Platelet Estimate Slight Decrease (Normal)
[2019-12-10] MEDS: Ipratropium/Albuterol Neb 3 ML IH PRN (04:26)
[2019-12-10] MEDS: Metoprolol XL (24 HR) Succ 25 MG TAB.ER.24H PO SCH (08:49)
[2019-12-10] MEDS: Apixaban 5 MG TABLET PO SCH ×2 (08:49→21:51)
[2019-12-10] MEDS: BuPROPion SR (12 HR) 150 MG TABLET PO SCH (08:49)
[2019-12-10] MEDS: Aspirin 81 MG TAB.CHEW PO SCH (08:49)
[2019-12-10] MEDS: Furosemide 40 MG/4 ML VIAL IVP SCH ×2 (08:50→21:52)
[2019-12-10] MEDS ORDERED: Isovue-370 500 ML BOTTLE IVP ONE (10:23)
[2019-12-10] MEDS ORDERED: *HR* OxyCODONE/APAP 5/325 TABLET PO PRN (11:36)
[2019-12-10] MEDS: Budesonide/Formoterol 160/4.5 1 PUFF INH IH SCH ×2 (13:27→20:45)
[2019-12-10] MEDS: Fluticasone Propionate Nasal 50 MCG/SPRAY BOTTLE NS SCH (15:25)
[2019-12-10] MEDS: *HR* LORazepam 1 MG TABLET PO SCH ×2 (15:28→21:52)
[2019-12-10] MEDS: Loratadine 10 MG TABLET PO SCH (21:52)
[2019-12-11 03:18] LABS: Basophils % 0.4 %; Eosinophils # 0.2 K/mcL (0.0-0.6); Eosinophils % 4.1 %; Hematocrit 29.2 % (37.5-50.1); Hemoglobin 8.8 g/dL (12.9-16.9); Immature Granulocytes % 0.4 % (0-4); Lymphocytes # 0.9 K/mcL (0.6-4.6); Lymphocytes % 16.7 %; Mean Corpuscular HGB Conc 30.1 g/dL (31.6-35.5); Mean Corpuscular Hemoglobin 33.1 pg (28.0-33.3); Mean Corpuscular Volume 109.8 fL (83.0-100.0); Monocytes # 0.6 K/mcL (0.0-1.3); Monocytes % 10.1 %; Neutrophils # 3.8 K/mcL (1.6-8.9); Platelet Count 161 K/mcL (140-400); Red Blood Count 2.66 M/mcL (4.19-5.50); Red Cell Distribution Width 14.5 % (11.5-14.5); Segmented Neutrophils % 68.3 %; White Blood Count 5.6 K/mcL (4.3-11.1)
[2019-12-11 03:54] LABS: Calcium 8.7 mg/dL (8.6-10.3); Magnesium 1.6 mg/dL (1.6-2.6); Phosphorous 3.3 mg/dL (2.7-4.5); Potassium 3.2 mEq/L (3.5-5.1)
[2019-12-11] MEDS: Budesonide/Formoterol 160/4.5 1 PUFF INH IH SCH ×2 (07:05→20:15)
[2019-12-11] MEDS: Tiotropium 18 MCG inhalation IH SCH (07:06)
[2019-12-11 07:28] LABS: Adenovirus Not Detected (Not Detect); Bordetella Pertussis Not Detected (Not Detect); Chlamydophila pneumoniae Not Detected (Not Detect); Coronavirus 229E Not Detected (Not Detect); Coronavirus HKU1 Not Detected (Not Detect); Coronavirus NL63 Not Detected (Not Detect); Coronavirus OC43 Not Detected (Not Detect); Human Metapneumovirus Not Detected (Not Detect); Human Rhinovirus/Enterovirus Not Detected (Not Detect); Influenza A Subtype 2009 H1 Not Detected (Not Detect); Influenza B Not Detected (Not Detect); Mycoplasma pneumoniae Not Detected (Not Detect); Parainfluenza Virus 1 Not Detected (Not Detect); Parainfluenza Virus 2 Not Detected (Not Detect); Parainfluenza Virus 3 Not Detected (Not Detect); Parainfluenza Virus 4 Not Detected (Not Detect); Respiratory Syncytial Virus Not Detected (Not Detect)
[2019-12-11] MEDS: Furosemide 40 MG/4 ML VIAL IVP SCH (07:29)
[2019-12-11] MEDS: *HR* LORazepam 1 MG TABLET PO SCH ×3 (07:29→21:58)
[2019-12-11] MEDS: Aspirin 81 MG TAB.CHEW PO SCH (07:30)
[2019-12-11] MEDS: Metoprolol XL (24 HR) Succ 25 MG TAB.ER.24H PO SCH (07:30)
[2019-12-11] MEDS: BuPROPion SR (12 HR) 150 MG TABLET PO SCH (07:30)
[2019-12-11] MEDS: Apixaban 5 MG TABLET PO SCH ×2 (07:30→21:58)
[2019-12-11] MEDS: Fluticasone Propionate Nasal 50 MCG/SPRAY BOTTLE NS SCH (07:31)
[2019-12-11] MEDS: Loratadine 10 MG TABLET PO SCH (21:58)
[2019-12-12 08:02] LABS: Basophils % 0.5 %; Eosinophils # 0.2 K/mcL (0.0-0.6); Eosinophils % 3.1 %; Hematocrit 31.1 % (37.5-50.1); Hemoglobin 9.1 g/dL (12.9-16.9); Immature Granulocytes % 0.3 % (0-4); Lymphocytes % 16.6 %; Mean Corpuscular HGB Conc 29.3 g/dL (31.6-35.5); Mean Corpuscular Hemoglobin 32.4 pg (28.0-33.3); Mean Corpuscular Volume 110.7 fL (83.0-100.0); Mean Platelet Volume 9.4 fL (9.4-12.4); Monocytes # 0.6 K/mcL (0.0-1.3); Monocytes % 9.6 %; Platelet Count 177 K/mcL (140-400); Red Blood Count 2.81 M/mcL (4.19-5.50); Red Cell Distribution Width 14.4 % (11.5-14.5); Segmented Neutrophils % 69.9 %; White Blood Count 6.1 K/mcL (4.3-11.1)
[2019-12-12 08:06] LABS: Neutrophils # 4.3 K/mcL (1.6-8.9)
[2019-12-12 08:29] LABS: Calcium 8.5 mg/dL (8.6-10.3); Potassium 3.2 mEq/L (3.5-5.1)
[2019-12-12] MEDS: Aspirin 81 MG TAB.CHEW PO SCH (08:45)
[2019-12-12] MEDS: *HR* LORazepam 1 MG TABLET PO SCH ×3 (08:45→20:48)
[2019-12-12] MEDS: Apixaban 5 MG TABLET PO SCH ×2 (08:46→20:48)
[2019-12-12] MEDS: BuPROPion SR (12 HR) 150 MG TABLET PO SCH (08:46)
[2019-12-12] MEDS: Metoprolol XL (24 HR) Succ 25 MG TAB.ER.24H PO SCH (08:46)
[2019-12-12] MEDS: Fluticasone Propionate Nasal 50 MCG/SPRAY BOTTLE NS SCH (08:49)
[2019-12-12 08:50] LABS: Anisocytosis 1+ (Not Present); Macrocytosis Present (Not Present); Platelet Estimate Normal (Normal)
[2019-12-12] MEDS: Ipratropium/Albuterol Neb 3 ML IH PRN ×2 (10:59→21:24)
[2019-12-12] MEDS: Budesonide/Formoterol 160/4.5 1 PUFF INH IH SCH ×2 (11:00→21:18)
[2019-12-12] MEDS: Tiotropium 18 MCG inhalation IH SCH (11:00)
[2019-12-12] MEDS: Loratadine 10 MG TABLET PO SCH (20:48)
[2019-12-13 06:13] LABS: Basophils % 0.3 %; Eosinophils # 0.2 K/mcL (0.0-0.6); Eosinophils % 3.3 %; Hematocrit 29.7 % (37.5-50.1); Immature Granulocytes % 0.3 % (0-4); Lymphocytes # 1.1 K/mcL (0.6-4.6); Lymphocytes % 17.6 %; Mean Corpuscular HGB Conc 30.3 g/dL (31.6-35.5); Mean Corpuscular Hemoglobin 33.3 pg (28.0-33.3); Mean Platelet Volume 9.5 fL (9.4-12.4); Monocytes # 0.6 K/mcL (0.0-1.3); Monocytes % 9.3 %; Neutrophils # 4.2 K/mcL (1.6-8.9); Platelet Count 174 K/mcL (140-400); Red Cell Distribution Width 14.5 % (11.5-14.5); Segmented Neutrophils % 69.2 %; White Blood Count 6.1 K/mcL (4.3-11.1)
[2019-12-13 06:37] LABS: Calcium 8.5 mg/dL (8.6-10.3); Potassium 3.2 mEq/L (3.5-5.1)
[2019-12-13] MEDS: Budesonide/Formoterol 160/4.5 1 PUFF INH IH SCH (07:49)
[2019-12-13] MEDS: Tiotropium 18 MCG inhalation IH SCH (07:50)
[2019-12-13] MEDS: *HR* LORazepam 1 MG TABLET PO SCH (08:34)
[2019-12-13] MEDS: BuPROPion SR (12 HR) 150 MG TABLET PO SCH (08:34)
[2019-12-13] MEDS: Aspirin 81 MG TAB.CHEW PO SCH (08:34)
[2019-12-13] MEDS: Apixaban 5 MG TABLET PO SCH (08:34)
[2019-12-13] MEDS: Metoprolol XL (24 HR) Succ 25 MG TAB.ER.24H PO SCH (08:34)
[2019-12-13] MEDS: Fluticasone Propionate Nasal 50 MCG/SPRAY BOTTLE NS SCH (08:41)
[2019-12-13 11:41] VITALS: BP 124/53
== END 2019-12-13 15:20 | disposition home health service (06) | DRG 291 ==
LOC: EMEROOARM 11:47 → 3BNU 11:47 → SUATTDRO 17:07 → 3BNU 18:31
PROVIDERS: ADMIT Family Medicine; ATTEND Internal Medicine

== ENCOUNTER 2019-12-23 02:59 | Inpatient (IN) ==
[2019-12-23 03:41] LABS: Hematocrit 36.3 % (37.5-50.1); Hemoglobin 11.1 g/dL (12.9-16.9); Mean Corpuscular HGB Conc 30.6 g/dL (31.6-35.5); Mean Corpuscular Hemoglobin 32.5 pg (28.0-33.3); Mean Corpuscular Volume 106.1 fL (83.0-100.0); Mean Platelet Volume 9.5 fL (9.4-12.4); Platelet Count 279 K/mcL (140-400); Red Blood Count 3.42 M/mcL (4.19-5.50); Red Cell Distribution Width 13.4 % (11.5-14.5)
[2019-12-23 03:54] LABS: Lymphocytes # 0.9 K/mcL (0.6-4.6); Monocytes # 0.4 K/mcL (0.0-1.3); Neutrophils # 20.7 K/mcL (1.6-8.9)
[2019-12-23 03:55] LABS: Platelet Estimate Normal (Normal)
[2019-12-23 04:04] LABS: Calcium 8.2 mg/dL (8.6-10.3); Potassium 3.1 mEq/L (3.5-5.1)
[2019-12-23] MEDS ORDERED: 0.9 % Sodium Chloride 1,000 ML ONE (04:07)
[2019-12-23] MEDS ORDERED: 0.9 % Sodium Chloride 1,000 ML IV ONE (04:10)
[2019-12-23 04:14] LABS: Troponin I 0.04 ng/mL (< 0.04)
[2019-12-23] MEDS ORDERED: 0.9 % Sodium Chloride 1,000 ML IVC ONE (04:15)
[2019-12-23] MEDS ORDERED: Aspirin 325 MG TABLET PO ONE (04:15)
[2019-12-23] MEDS ORDERED: Azithromycin 500 MG in 0.9 % Sodium Chloride 250 ML IVPB ONE (04:21)
[2019-12-23] MEDS ORDERED: Cefepime HCl 1,000 MG in 0.9 % Sodium Chloride Mini Bag 100 ML IVPB STA (04:22)
[2019-12-23 04:25] LABS: Thyroid Stimulating Hormone 5.557 mcIU/mL (0.340-5.600)
[2019-12-23 05:22] LABS: Bilirubin,Urine Small (Negative); Blood,Urine Negative (Negative); Clarity,Urine Turbid (Clear); Color,Urine Dark Yellow (Yellow); Glucose,Urine (UA) Normal (Normal); Ketones,Urine Negative (Negative); Leukocyte Esterase,Urine Negative (Negative); Nitrite,Urine Negative (Negative); Protein,Urine 30 mg/dL (Neg-Trace); Specific Gravity,Urine 1.023 (1.010-1.025); Urobilinogen,Urine Normal (Normal)
[2019-12-23 05:23] LABS: Squamous Epithelial Cell,Urine Many per lpf (None-Few); WBC,Urine 0-3 per hpf (0-3)
[2019-12-23 05:36] LABS: Amorphous Sediment,Urine Moderate per hpf (Few); Bacteria,Urine Few per hpf (None-Few); Hyaline Casts,Urine Few per lpf (None-Few)
[2019-12-23] MEDS ORDERED: Naloxone 0.4 MG/ML INJ IVP PRN (08:32)
[2019-12-23] MEDS ORDERED: *HR* Promethazine 25 MG/ML VIAL IVP PRN (08:42)
[2019-12-23] MEDS ORDERED: Ondansetron ODT 4 MG TAB.RAPDIS SL PRN (08:42)
[2019-12-23] MEDS ORDERED: Albuterol 2.5 MG/3 ML NEBULIZER IH PRN (08:45)
[2019-12-23] MEDS ORDERED: Nitroglycerin 0.4 MG TAB.SUBL SL PRN (08:50)
[2019-12-23] MEDS ORDERED: predniSONE 20 MG TABLET PO SCH (09:00)
[2019-12-23] MEDS ORDERED: 0.9 % Sodium Chloride 1,000 ML IVC SCH (09:00)
[2019-12-23] MEDS ORDERED: Ipratropium/Albuterol Neb 3 ML IH PRN (09:28)
[2019-12-23] MEDS: Budesonide/Formoterol 160/4.5 1 PUFF INH IH SCH ×2 (10:33→20:21)
[2019-12-23] MEDS ORDERED: Ipratropium/Albuterol Neb 3 ML IH SCH (12:00)
[2019-12-23] MEDS: Vancomycin Oral Soln 125 MG/2.5 ML UDC PO SCH ×3 (13:08→20:04)
[2019-12-23] MEDS: 0.9 % Sodium Chloride 1,000 ML IVC SCH ×2 (15:26→20:06)
[2019-12-23] MEDS: *HR* LORazepam 1 MG TABLET PO SCH ×2 (15:26→20:03)
[2019-12-23] MEDS ORDERED: cefTRIAXone 2,000 MG in Water for inj. (sterile) 20 ML IVP SCH (16:00)
[2019-12-23] MEDS: Apixaban 5 MG TABLET PO SCH (20:03)
[2019-12-24 01:37] LABS: Hematocrit 36.2 % (37.5-50.1); Hemoglobin 11.1 g/dL (12.9-16.9); Mean Corpuscular HGB Conc 30.7 g/dL (31.6-35.5); Mean Corpuscular Hemoglobin 32.7 pg (28.0-33.3); Mean Corpuscular Volume 106.8 fL (83.0-100.0); Mean Platelet Volume 9.6 fL (9.4-12.4); Platelet Count 334 K/mcL (140-400); Red Blood Count 3.39 M/mcL (4.19-5.50); Red Cell Distribution Width 13.6 % (11.5-14.5); White Blood Count 24.1 K/mcL (4.3-11.1)
[2019-12-24 01:52] LABS: Calcium 7.4 mg/dL (8.6-10.3); Potassium 3.8 mEq/L (3.5-5.1)
[2019-12-24] MEDS: Tiotropium 18 MCG inhalation IH SCH (07:53)
[2019-12-24] MEDS: Budesonide/Formoterol 160/4.5 1 PUFF INH IH SCH ×2 (07:53→20:00)
[2019-12-24] MEDS: BuPROPion SR (12 HR) 150 MG TABLET PO SCH (08:43)
[2019-12-24] MEDS: Cyanocobalamin (B-12) 1,000 MCG TABLET PO SCH (08:43)
[2019-12-24] MEDS: Apixaban 5 MG TABLET PO SCH ×2 (08:44→20:54)
[2019-12-24] MEDS: *HR* LORazepam 1 MG TABLET PO SCH ×3 (08:44→20:54)
[2019-12-24] MEDS: Acetaminophen 325 MG TABLET PO PRN ×2 (08:44→18:04)
[2019-12-24] MEDS: Metoprolol XL (24 HR) Succ 25 MG TAB.ER.24H PO SCH (08:44)
[2019-12-24] MEDS: Vancomycin Oral Soln 125 MG/2.5 ML UDC PO SCH ×4 (08:45→20:57)
[2019-12-24 08:54] LABS: Protein/Creatinine Ratio,Urine 1.46 mg/mg (0.00-0.20); Sodium, Urine 17.9 mEq/L
[2019-12-24] MEDS ORDERED: Aspirin Enteric Coated 81 MG Tablet PO SCH (09:00)
[2019-12-24] MEDS ORDERED: Azithromycin 500 MG in 0.9 % Sodium Chloride 250 ML IVPB SCH (09:00)
[2019-12-24] MEDS ORDERED: Ondansetron 4 MG/2 ML VIAL IVP SCH (10:00)
[2019-12-24] MEDS: 0.9 % Sodium Chloride 1,000 ML IVC SCH ×2 (10:27→20:53)
[2019-12-24] MEDS: Ondansetron 4 MG/2 ML VIAL IVP SCH ×2 (15:25→23:29)
[2019-12-25 02:37] LABS: Hemoglobin 11.8 g/dL (12.9-16.9); Lymphocytes # 0.6 K/mcL (0.6-4.6); Mean Corpuscular HGB Conc 31.1 g/dL (31.6-35.5); Mean Corpuscular Hemoglobin 33.2 pg (28.0-33.3); Mean Platelet Volume 9.7 fL (9.4-12.4); Platelet Count 393 K/mcL (140-400); Red Blood Count 3.55 M/mcL (4.19-5.50); Red Cell Distribution Width 13.2 % (11.5-14.5); White Blood Count 29.2 K/mcL (4.3-11.1)
[2019-12-25 02:56] LABS: Calcium 6.4 mg/dL (8.6-10.3)
[2019-12-25 03:11] LABS: Monocytes # 2.3 K/mcL (0.0-1.3); Neutrophils # 26.3 K/mcL (1.6-8.9)
[2019-12-25 03:12] LABS: Platelet Estimate Normal (Normal); Toxic Granulation Present (Not Present)
[2019-12-25] MEDS ORDERED: Pantoprazole 40 MG VIAL IVP ONE (05:37)
[2019-12-25] MEDS: Ondansetron 4 MG/2 ML VIAL IVP SCH (05:40)
[2019-12-25] MEDS ORDERED: Albumin Human 5% 12.5 GM/250 ML IV.SOLN IVPB ONE (07:54)
[2019-12-25] MEDS: Cyanocobalamin (B-12) 1,000 MCG TABLET PO SCH (09:14)
[2019-12-25] MEDS: BuPROPion SR (12 HR) 150 MG TABLET PO SCH (09:14)
[2019-12-25] MEDS: *HR* LORazepam 1 MG TABLET PO SCH ×2 (09:14→15:19)
[2019-12-25] MEDS: Metoprolol XL (24 HR) Succ 25 MG TAB.ER.24H PO SCH (09:14)
[2019-12-25] MEDS: Vancomycin Oral Soln 125 MG/2.5 ML UDC PO SCH ×3 (09:15→16:32)
[2019-12-25 10:06] LABS: Hematocrit 40.4 % (37.5-50.1); Hemoglobin 12.3 g/dL (12.9-16.9)
[2019-12-25] MEDS ORDERED: MetroNIDAZOLE 500 MG/100 ML 500 MG/100 ML BAG IVPB SCH (11:00)
[2019-12-25] MEDS: Budesonide/Formoterol 160/4.5 1 PUFF INH IH SCH ×2 (11:10→19:28)
[2019-12-25] MEDS: Tiotropium 18 MCG inhalation IH SCH (11:12)
[2019-12-25] MEDS ORDERED: Albumin 25% 25gram/100mL 25 GM/100 ML IV.SOLN IVPB ONE (12:09)
[2019-12-25 12:47] LABS: VBG Ionized Calcium 0.85 mmol/L (1.15-1.35)
[2019-12-25 13:03] LABS: Albumin 2.5 g/dL (3.5-5.7); Albumin/Globulin Ratio 1.1 (1.1-2.2); Bilirubin,Direct 0.1 mg/dL (0.0-0.2); Bilirubin,Indirect 0.1 mg/dL (0.0-1.0); Bilirubin,Total 0.2 mg/dL (0.3-1.0); Globulin 2.2 g/dL (2.4-3.5); Total Protein 4.7 g/dL (6.4-8.9)
[2019-12-25 16:54] VITALS: BP 103/70
[2019-12-25] MEDS ORDERED: *HR* Norepinephrine 4 MG/4 ML VIAL IVC ONE ×2 (18:06)
[2019-12-25] MEDS ORDERED: *HR* Adenosine 6 MG/2 ML SYRINGE IVP ONE (18:06)
[2019-12-25] MEDS ORDERED: *HR* EPINEPHrine 1 MG/10 ML SYRINGE IVP ONE ×2 (18:06)
[2019-12-25] MEDS ORDERED: EPINEPHrine 1 MG/ML VIAL IV ONE (18:06)
[2019-12-25] MEDS ORDERED: D5% in Water 250 ML IV BAG IV ONE (18:06)
== END 2019-12-25 18:07 | disposition expired | DRG 871 ==
LOC: 2ANU 02:59 → EMEROOARM 02:59 → SUATTDRO 06:51 → 2ANU 07:45
PROVIDERS: ADMIT Family Medicine; ATTEND Pharmacist